=== PATIENT | male | born 1955 | race Hispanic/Latino ===

== ENCOUNTER 2016-07-24 14:23 | Inpatient (IN) | payer MEDICAID ==
[2016-07-24 14:23] VITALS: BMI 25.1
[2016-07-24 15:15] LABS: BASO # 0.1 K/uL (0.0-0.2); BASO % 1.1 % (0.0-2.0); EOS # 0.2 K/uL (0.0-0.7); EOS % 3.6 % (0.0-4.0); LYMPH # 2.3 K/uL (1.0-4.3); MEAN CELL VOLUME 96.6 fL (80.0-94.0); MEAN CORPUSCULAR HEMOGLOBIN 32.2 pg (27.0-31.0); MEAN CORPUSCULAR HGB CONC 33.4 g/dL (33.0-37.0); MEAN PLATELET VOLUME 9.1 fL (7.2-11.7); MONO # 0.4 K/uL (0.0-0.8); MONO % 6.4 % (0.0-10.0); WHITE BLOOD COUNT 6.7 K/uL (4.8-10.8)
[2016-07-24 15:21] LABS: CHLORIDE 103 mmol/L (98-107); SODIUM 149 mmol/L (132-148)
--- NOTE | 2016-07-24 15:21 | C.PDOC ---
History Of Present Illness 61 y/o male presents to the ED requesting heroin and alcohol detox. Pt last used heroin today and alcohol yesterday. Pt is prescreened for detox admission. Complains of poor hearing and forgetfulness. Denies headache, nausea, vomiting, fever, SOB or any other complaints. Time Seen by Provider: 07/24/16 15:03 Chief Complaint (Nursing): Substance Abuse History Per: Patient History/Exam Limitations: no limitations Suicide/Self Injury Attempted (Context): None Modifying Factor(s): Alcohol, Narcotics Severity: Mild Involuntary Hold By: None Recent travel outside of the [place]: No Past Medical History Reviewed: Historical Data, Nursing Documentation, Vital Signs Vital Signs: Last Vital Signs Temp 98.2 F 07/24/16 14:44 Pulse 80 07/24/16 14:44 Resp 16 07/24/16 14:44 BP 105/68 07/24/16 14:44 Pulse Ox 95 07/24/16 15:24 - Medical History PMH: Anxiety, Parkinson's Disease - [facility] Procedures INJECT/INFUSE ELECTROLYT (11/22/14) INJECT/INFUSE NEC (08/22/14) INSERT INDWELLING CATH (11/22/14) Family History: States: Unknown Family Hx - Social History Hx Alcohol Use: Yes Hx Substance Use: Yes - Immunization History Hx Tetanus Toxoid Vaccination: No Hx Influenza Vaccination: No Hx Pneumococcal Vaccination: No Review Of Systems Except As Marked, All Systems Reviewed And Found Negative. Constitutional: Negative for: Fever, Chills ENT: Positive for: Other (poor hearing) Cardiovascular: Negative for: Chest Pain Respiratory: Negative for: Shortness of Breath Gastrointestinal: Negative for: Nausea, Vomiting Neurological: Positive for: Other (forgetfullness) Physical Exam - Physical Exam Appears: Non-toxic, No Acute Distress, Other (cachectic, appears intoxicated with heroin) Skin: Warm, Dry, Pale, No Rash Head: Atraumatic, Normacephalic Neck: Normal, Normal ROM, Supple Chest: Symmetrical Cardiovascular: Rhythm Regular, No Murmur Respiratory: Normal Breath Sounds, No Rales, No Rhonchi, No Wheezing Gastrointestinal/Abdominal: Normal Exam, Soft, No Tenderness Extremity: Bilateral: Atraumatic Neurological/Psych: Oriented x3 ED Course And Treatment - Laboratory Results Result Diagrams: 07/24/16 15:06 07/24/16 15:06 O2 Sat by Pulse Oximetry: 95 (room air) Pulse Ox Interpretation: Normal Medical Decision Making Medical Decision Making: CRISIS made aware of case, will further evaluate. Ordered labs and UA. Disposition Counseled Patient/Family Regarding: Studies Performed, Diagnosis - Disposition Disposition: HOSPITALIZED Disposition Time: 16:44 Condition: GUARDED - Clinical Impression Clinical Impression: Drug abuse, Drug dependence - Scribe Statement The provider has reviewed the documentation as recorded by the Eileen Carter Provider Attestation: All medical record entries made by the Eileen were at my direction and personally dictated by me. I have reviewed the chart and agree that the record accurately reflects my personal performance of the history, physical exam, medical decision making, and the department course for this patient. I have also personally directed, reviewed, and agree with the discharge instructions and disposition. Decision To Admit - Pt Status Changed To: Hospital Disposition Of: Inpatient - Admit Certification Admit to Inpatient:: After my assessment, the patient will require hospitalization for at least two midnights. This is because of the severity of symptoms shown, intensity of services needed, and/or the medical risk in this patient being treated as an outpatient. - InPatient: Physician Admission Certification: I certify that this patient requires 2 or more midnights of care for the following reason:: needs inpatient detox - . Bed Request Type: Detox Patient Diagnosis: Drug abuse, Drug dependence
[2016-07-24 15:22] LABS: POTASSIUM 4.1 mmol/L (3.6-5.2); RBC URINE 10 /hpf (0-3); URINE BILIRUBIN NEGATIVE (NEGATIVE); URINE BLOOD 2+ (NEGATIVE); URINE COLOR Yellow (YELLOW); URINE GLUCOSE (UA) NORMAL (Normal); URINE KETONE TRACE mg/dL (NEGATIVE); URINE LEUKOCYTE ESTERASE NEG Leu/uL (Negative); URINE PROTEIN NEGATIVE (NEGATIVE); WBC URINE < 1 /hpf (0-5)
[2016-07-24 15:24] LABS: ALB/GLOB RATIO 1.4 (1.0-2.1); ALKALINE PHOSPHATASE 54 U/L (38-126); ALT/SGPT 12 U/L (21-72); AST/SGOT 27 U/L (17-59); BILIRUBIN,TOTAL 0.4 mg/dL (0.2-1.3); BLOOD UREA NITROGEN 17 mg/dL (9-20); CARBON DIOXIDE 29 mmol/L (22-30); GFR AFRICAN-AMERICAN > 60; GLUCOSE,RANDOM 94 mg/dL (75-110)
[2016-07-24 15:25] LABS: ALCOHOL SERUM < 10 mg/dl (0-10); CALCIUM 8.7 mg/dl (8.6-10.4)
[2016-07-24] MEDS ORDERED: Buprenorphine Hydrochloride 2 mg SL ONE ×2 (17:29→18:45)
[2016-07-24] MEDS ORDERED: Aluminum Hydroxide/Magnesium Hydroxide Susp (30 mL) PO PRN (19:41)
[2016-07-25] MEDS: Multiple Vitamins Tab PO SCH (10:00)
[2016-07-25] MEDS: Buprenorphine Hydrochloride 2 mg SL SCH (10:00)
--- NOTE | 2016-07-25 11:20 | PCM.PSYCH ---
Initial Psychiatric Evaluation - Initial Psychiatric Evaluation Legal Status: Capacity Chief Complaint (in patient's own words): "I want heroin detox" History of Present Illness and Precipitating Events: Pt is seen, chart reviewed, case discussed Patient is a 61 year old male. He has three children in their 30s and he keeps in touch with them. He lives with friends and is on long-term disability due to chronic back and leg pain. Pt relapsed a couple of weeks ago. He snorts one bundle of heroin a day and has been drinking alcohol. Pt has history of drinking a quart of tequila a day. Pt was in detox at [facility] in April and then went to [facility]. He said he really liked his treatment and was doing well but relapsed due to "peer pressure and his living situation." Pt has been using opioids for 10 years, which started with prescription painkillers for his back. Pt smokes one pack a day and denies any other recreational drug use. Pt is prescribed Xanax and Percocet by Dr. Zaman, which he takes. Patient was in rehab once last year and detox 3x. He never tried suboxone maintenance therapy. Pt denies any legal issues. PMH: COPD and Hypercholesteremia PsychHx: Anxiety FamPsychHx: Aunt and Brother are bipolar. Father and half brother are alcoholics Current Medications: Active Medications Generic Name Dose Route Start Last Admin Trade Name Freq PRN Reason Stop Dose Admin Al Hydrox/Mg Hydrox/Simethicone 30 ml 07/24/16 19:41 Maalox 30 Ml PO TID PRN Indigestion / Heartburn Buprenorphine HCl 8 mg 07/25/16 10:00 07/25/16 10:00 Subutex SL 07/29/16 09:59 8 mg DAILY ROYER Administration Taper Chlordiazepoxide 25 mg 07/24/16 18:00 07/25/16 05:51 Librium PO 07/28/16 17:59 25 mg Q6 ROYER Administration Taper Chlordiazepoxide 25 mg 07/24/16 17:28 Librium PO Q4H PRN Alcohol Withdrawal Clonidine HCl 0.1 mg 07/24/16 19:35 Catapres PO Q4H PRN Symptoms of alcohol withdrawl Folic Acid 1 mg 07/25/16 10:00 07/25/16 10:00 Folic Acid PO 1 mg DAILY ROYER Administration Gabapentin 300 mg 07/24/16 19:45 07/25/16 10:00 Neurontin PO 300 mg BID ROYER Administration Hydroxyzine HCl 50 mg 07/24/16 19:39 07/24/16 21:34 Atarax PO 50 mg Q6H PRN Administration Anxiety Ibuprofen 600 mg 07/24/16 19:39 Motrin Tab PO Q6H PRN Pain, moderate (4-7) Loperamide HCl 2 mg 07/24/16 19:41 Imodium PO Q8 PRN Diarrhea Multivitamins 1 tab 07/25/16 10:00 07/25/16 10:00 Hexavitamin PO 1 tab DAILY ROYER Administration Ondansetron HCl 4 mg 07/24/16 19:41 Zofran Tab PO Q8 PRN Nausea/Vomiting Thiamine HCl 100 mg 07/25/16 10:00 07/25/16 10:00 Vitamin B1 Tab PO 100 mg DAILY ROYER Administration Trazodone HCl 50 mg 07/24/16 19:35 07/24/16 21:34 Desyrel PO 50 mg HS PRN Administration Insomnia Past Psychiatric History - Past Psychiatric History Pertinent Medical Hx (Current Medical&Sleep Prob, Allergies): Allergies Allergy/AdvReac Type Severity Reaction Status Date / Time No Known Allergies Allergy Verified 05/13/16 13:52 Alprazolam [Xanax] 2 mg PO QID 05/13/16 Review of Systems - Constitutional Constitutional: Sweats - Psychiatric Psychiatric: Anxiety Mental Status Examination - Personal Presentation Personal Presentation: Looks stated age - Affect Affect: Constricted - Motor Activity Motor Activity: Calm - Reliability in Providing Information Reliability in Providing Information: Fair - Speech Speech: Organized - Mood Mood: Depressed - Formal Thought Process Formal Thought Process: No Impairment - Obsessions/Compulsions Obsessions: No Compulsions: No - Cognitive Functions Orientation: Person, Place, Situation, Time Sensorium: Drowsy Attention/Concentration: Attentive Abstract Thinking: [place] Estimate of Intelligence: Average Judgement: Imparied, as evidence by: Lack of insight into illness Memory: Remote intact, as evidenced by: Abilit to recall sig. life events - Risk Risk: Seizure, Withdrawal - Strength & Assets Inventory Strength & Assets Inventory: Cooperative DSM 5 DX - DSM 5 DSM 5 Diagnosis: Opioid Withdrawal Opioid Use Disorder-severe Alcohol Withdrawal Alcohol Use Disorder-severe Sedative, hypnotic withdrawal Sedative, hypnotic use disorder -severe - Recommended/Plan of Treatment Treatment Recommendations and Plan of Treatment: Opioid Withdrawal -Subutex taper -monitor vitals and wdw symptoms -medications as needed Opioid Use Disorder-severe -CBT and DE -attend groups and activities - individual/group therapy -support and psychoeducation Alcohol Withdrawal -Librium taper -Clonidine PRN -folic acid/thiamine/multivitamin -monitor vitals and wdw symptoms - medication as needed Alcohol Use Disorder-severe - CBT and DE -individual/group therapy -attend groups adn activities -support and psychoeducation Sedative, hypnotic withdrawal - Librium taper - monitor vitals adn wdw symptoms -meds as needed Sedative, hypnotic use disorder -severe -CBT and DE -individual/group therapy -support and psychoeducation 33 minutes - Smoking Cessation Smoking Cessation Initiated: Yes
[2016-07-25 15:55] VITALS: RESP 18
[2016-07-26] MEDS: Buprenorphine Hydrochloride 2 mg SL SCH (09:22)
[2016-07-26] MEDS: Multiple Vitamins Tab PO SCH (12:15)
--- NOTE | 2016-07-26 14:37 | PCM.PYCHPN ---
Psychiatric Progress Note - Psychiatric Progress Note Patient seen today, length of contact: 16 mins Patient Chief Complaint: "I want to leave on Saturday" Problems Identified/Issues Discussed: Pt seen, chart reviewed, case discussed Pt reports that he is not feeling well. He says that he is having diarrhea, cramps and body aches. 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 Pt was counseled on the risks of leaving early and the need to finish his detox. He is anxious about going back to his living situation and wants to work so he can get his own place. He is living with his [id number] and significant other who uses drugs, and that the house is chaotic. He plans on returning to [facility] for his aftercare. Suboxone maintenance therapy was discussed. Support and psychoeducation given. Medication Change: Yes (Subutex taper and Librium taper) Medical Record Reviewed: Yes Mental Status Examination - Cognitive Function Orientation: Person, Place, Situation, Time Memory: Intact Attention: Poor Concentration: Poor Association: Loose Fund of Knowledge: Poor - Mood Mood: Depressed, Anxious - Affect Affect: Constricted - Speech Speech: Stammering - Formal Thought Process Formal Thought Process: No Impairment - Suicidal Ideation Suicidal Ideation: No - Homicidal Ideation Homicidal Ideation: No Goal/Treatment Plan - Goal/Treatment Plan Need for Continued Stay: Remain at risks for inpatient hospitalization, Discharge may exacerbated symptoms Progress Toward Problem(s) and Goals/Treatment Plan: Opioid Withdrawal -Subutex taper -monitor vitals and wdw symptoms -medications as needed Opioid Use Disorder-severe -CBT and NC -attend groups and activities - individual/group therapy -support and psychoeducation Alcohol Withdrawal -Librium taper -Clonidine PRN -folic acid/thiamine/multivitamin -monitor vitals and wdw symptoms - medication as needed Alcohol Use Disorder-severe - CBT and NC -individual/group therapy -attend groups adn activities -support and psychoeducation Sedative, hypnotic withdrawal - Librium taper - monitor vitals adn wdw symptoms -meds as needed Sedative, hypnotic use disorder -severe -CBT and NC -individual/group therapy -support and psychoeducation Tobacco Use Disorder - start nicotine replacement therapy - Smoking Cessation Smoking Cessation Initiated: Yes
[2016-07-27 09:13] VITALS: BP 124/83; PULSE 69; TEMP 97.9; O2SAT 99
[2016-07-27] MEDS: Multiple Vitamins Tab PO SCH (09:30)
[2016-07-27] MEDS: Buprenorphine Hydrochloride 2 mg SL SCH (09:32)
--- NOTE | 2016-07-27 10:09 | PCM.PYCHDC ---
Mental Status Examination - Mental Status Examination Orientation: Person, Place, Situation, Time Memory: Intact Mood: Neutral Affect: Constricted Speech: Soft Attention: WNL Concentration: WNL Association: WNL Fund of Knowledge: WNL Formal Thought Process: No Impairment Description of patient's judgement and insight: good, fair Psychotic Thoughts and Behaviors: denies any AVH Suicidal Ideation: No Current Homicidal Ideation?: No Discharge Summary - Discharge Note Reason for Hospitalization: Patient is a 61 year old male. He has three children in their 30s and he keeps in touch with them. 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 Pt relapsed a couple of weeks ago. He snorts one bundle of heroin a day and has been drinking alcohol. Pt has history of drinking a quart of tequila a day. Pt was in detox at [facility] in April and then went to [facility]. He said he really liked his treatment and was doing well but relapsed due to "peer pressure and his living situation." Pt has been using opioids for 10 years, which started with prescription painkillers for his back. Pt smokes one pack a day and denies any other recreational drug use. Pt is prescribed Xanax and Percocet by Dr. Zaman, which he takes. Patient was in rehab once last year and detox 3x. He never tried suboxone maintenance therapy. Pt denies any legal issues. Consultations:: List each consultation separately and include: 1. Reason for request. 2. Findings. 3. Follow-up Summary of Hospital Course include:: 1. Description of specific treatment plan utilized for patients during their course of treatmen. 2. Summarize the time- course for resolution of acute symptoms and/or regressed behaviors. 3. Describe issues identified and worked on during hospitalization. 4. Describe medication utilized. 5. Describe medical problems identified and treated. 6. Reassessment of suicide risk Summary of Hospital Course: During the course of his stay, patient (pt) started progressively improving and he no longer remained anxious and irritable. He tolerated the withdrawal protocol very well. He didnt have any shakes, sweating or any other withdrawal symptoms. He started attending groups and meetings and started socializing. Denied any feelings of hopelessness, helplessness, and worthlessness, denied any problem with the sleep or appetite, denied suicidal ideation or homicidal ideation. Pt denied any auditory or visual hallucinations. Patient remained calm and cooperative and remained compliant with the medications. Patient tolerated the detox medications very well and denied any side effects. - Final Diagnosis (DSM 5) Condition upon Discharge: GOOD DSM 5: Opioid Withdrawal Opioid Use Disorder-severe Alcohol Withdrawal Alcohol Use Disorder-severe Sedative, hypnotic withdrawal Sedative, hypnotic use disorder -severe Disposition: HOME/ ROUTINE Follow-up Treatment Plan: Education: Pt was educated and counseled about the risks and benefits of taking and not taking medications. Pt was educated and counseled about the risks of drinking and abusing drugs. Pt was educated and counseled to go to the ER or call 911 if pt develop suicidal ideation or homicidal ideation, worsening of symptoms or severe side effects of the meds. Prescriptions/Medication Reconciliation: Buprenorphine Hydrochloride [Subutex] 2 mg SL ONCE #1 tab Gabapentin [Neurontin] 300 mg PO TID #90 cap Multivitamins [Hexavitamin] 1 tab PO DAILY #30 tab traZODone [Desyrel] 50 mg PO HS PRN #30 tab PRN Reason: Insomnia - Smoking Cessation Smoking Cessation Medication prescribed: No - Antipsychotic Medications Pt discharged on 2 or more routine antipsychotic medications: No
== END 2016-07-27 11:00 | disposition home or self-care (01) | DRG 744 ==
LOC: C.ER 14:23 → C.7D 16:45
PROVIDERS: ADMIT Psychiatry & Neurology Psychiatry; ATTEND Psychiatry & Neurology Psychiatry
PROC: HZ42ZZZ Group Counseling for Substance Abuse Treatment, Cognitive-Behavioral (ICD-10-PCS; principal; 2016-07-24)
PROC: HZ46ZZZ Group Counseling for Substance Abuse Treatment, Psychoeducation (ICD-10-PCS; 2016-07-24)
PROC: HZ2ZZZZ Detoxification Services for Substance Abuse Treatment (ICD-10-PCS; 2016-07-24)
DX: F11.23 Opioid dependence with withdrawal (principal); J44.9 Chronic obstructive pulmonary disease, unspecified; G20 Parkinson's disease; F10.239 Alcohol dependence with withdrawal, unspecified; F13.239 Sedative, hypnotic or anxiolytic dependence with withdrawal, unspecified; E78.00 Pure hypercholesterolemia, unspecified; F17.210 Nicotine dependence, cigarettes, uncomplicated; G89.29 Other chronic pain

== ENCOUNTER 2016-09-28 16:47 | Inpatient (IN) | payer MEDICAID ==
[2016-09-28 16:47] VITALS: BMI 25.1
--- NOTE | 2016-09-28 17:15 | C.PDOC ---
History Of Present Illness 61 y/o male presents to the ED with complaints of hearing voices telling him to kill himself. Pt denies HI or any physical complaints. Time Seen by Provider: 09/28/16 17:06 Chief Complaint (Nursing): Psychiatric Evaluation History Per: Patient History/Exam Limitations: no limitations Current Symptoms Are (Timing): Still Present Modifying Factor(s): None Severity: Mild Associated Symptoms: Suicidal Thoughts. denies: Suicidal Plan Involuntary Hold By: None Recent travel outside of the [place]: No Past Medical History Reviewed: Historical Data, Nursing Documentation, Vital Signs Vital Signs: Last Vital Signs Temp 97.9 F 09/28/16 16:57 Pulse 74 09/28/16 16:57 Resp 18 09/28/16 16:57 BP 105/73 09/28/16 16:57 Pulse Ox 98 09/28/16 18:16 - Medical History PMH: Anxiety, Parkinson's Disease, Seizures - [facility] Procedures DETOXIFICATION SERVICES FOR SUBSTANCE ABUSE TREATMENT (07/24/16) GROUP INDUSTRIAL TECHNICIAN FOR SUBSTANCE ABUSE TREATMENT, PSYCHOEDUCATION (07/24/16) GROUP INDUSTRIAL TECHNICIAN FOR SUBSTANCE ABUSE, COGNITIVE BEHAVIORAL (07/24/16) INJECT/INFUSE ELECTROLYT (11/22/14) INJECT/INFUSE NEC (08/22/14) INSERT INDWELLING CATH (11/22/14) Family History: States: Unknown Family Hx - Social History Hx Alcohol Use: Yes Hx Substance Use: Yes - Immunization History Hx Tetanus Toxoid Vaccination: No Hx Influenza Vaccination: No Hx Pneumococcal Vaccination: No Review Of Systems Except As Marked, All Systems Reviewed And Found Negative. Psych: Positive for: Suicidal ideation Physical Exam - Physical Exam Appears: Non-toxic, No Acute Distress Skin: Warm, Dry, No Rash Head: Atraumatic, Normacephalic Neck: Normal, Normal ROM, Supple Chest: Symmetrical Cardiovascular: Rhythm Regular, No Murmur Respiratory: Normal Breath Sounds, No Rales, No Rhonchi, No Wheezing Gastrointestinal/Abdominal: Normal Exam, Soft, No Tenderness Extremity: Bilateral: Atraumatic Neurological/Psych: Oriented x3, Normal Speech, Normal Cognition ED Course And Treatment - Laboratory Results Result Diagrams: 09/28/16 17:43 09/28/16 17:43 O2 Sat by Pulse Oximetry: 98 (room air) Pulse Ox Interpretation: Normal Medical Decision Making Medical Decision Making: will clear for crisis 630: pt medically cleared 700: accepted to crisis. Disposition - Disposition Disposition: HOSPITALIZED Disposition Time: 18:57 Condition: STABLE - Clinical Impression Clinical Impression: Hallucinations, Opiate abuse, continuous - Scribe Statement The provider has reviewed the documentation as recorded by the Eileen Carter Provider Attestation: All medical record entries made by the Layaibe were at my direction and personally dictated by me. I have reviewed the chart and agree that the record accurately reflects my personal performance of the history, physical exam, medical decision making, and the department course for this patient. I have also personally directed, reviewed, and agree with the discharge instructions and disposition. Decision To Admit - Pt Status Changed To: Hospital Disposition Of: Inpatient - Admit Certification Admit to Inpatient:: After my assessment, the patient will require hospitalization for at least two midnights. This is because of the severity of symptoms shown, intensity of services needed, and/or the medical risk in this patient being treated as an outpatient. - InPatient: Physician Admission Certification: I certify that this patient requires 2 or more midnights of care for the following reason:: pt will need inpt pysch - . Bed Request Type: Psychiatry Admitting Physician: Claudia Guzman Patient Diagnosis: Hallucinations, Opiate abuse, continuous
[2016-09-28 17:57] LABS: BASO # 0.1 K/uL (0.0-0.2); BASO % 1.1 % (0.0-2.0); EOS # 0.2 K/uL (0.0-0.7); EOS % 3.2 % (0.0-4.0); HEMOGLOBIN 12.8 g/dL (12.0-18.0); LYMPH # 1.9 K/uL (1.0-4.3); LYMPH % 35.7 % (20.0-40.0); MEAN CORPUSCULAR HEMOGLOBIN 31.8 pg (27.0-31.0); MEAN CORPUSCULAR HGB CONC 34.2 g/dL (33.0-37.0); MEAN PLATELET VOLUME 8.4 fL (7.2-11.7); MONO # 0.4 K/uL (0.0-0.8); MONO % 7.1 % (0.0-10.0); NEUT # 2.7 K/uL (1.8-7.0); NEUT % 52.9 % (50.0-75.0); RBC 4.03 Mil/uL (4.40-5.90); RED CELL DISTRIBUTION WIDTH 13.3 % (11.5-14.5); WHITE BLOOD COUNT 5.2 K/uL (4.8-10.8)
[2016-09-28 18:00] LABS: ALBUMIN 3.8 g/dL (3.5-5.0)
[2016-09-28 18:03] LABS: ALB/GLOB RATIO 1.2 (1.0-2.1); AST/SGOT 22 U/L (17-59); BLOOD UREA NITROGEN 16 mg/dL (9-20); GFR AFRICAN-AMERICAN > 60; GFR NON-AFRICAN AMERICAN > 60
[2016-09-28 18:04] LABS: ALT/SGPT 21 U/L (21-72)
[2016-09-28 18:05] LABS: SALICYLATE < 1.0 mg/dL 1
[2016-09-28 18:08] LABS: ACETAMINOPHEN < 10.0 ug/mL (10.0-30.0)
[2016-09-28 18:10] LABS: BARBITURATES, UR POSITIVE (NEGATIVE); BENZODIAZEPINES, UR POSITIVE (NEGATIVE)
[2016-09-28 18:13] LABS: OPIATES, UR POSITIVE (NEGATIVE); PHENCYCLIDINE, UR NEGATIVE (NEGATIVE); SQUAMOUS EPITHIAL < 1 /hpf (0-5); URINE BILIRUBIN NEGATIVE (NEGATIVE); URINE BLOOD 2+ (NEGATIVE); URINE CLARITY Clear (Clear); URINE COLOR Yellow (YELLOW); URINE GLUCOSE (UA) NORMAL (Normal); URINE LEUKOCYTE ESTERASE NEG Leu/uL (Negative); URINE NITRATE NEGATIVE (NEGATIVE); URINE PROTEIN NEGATIVE (NEGATIVE); URINE UROBILINOGEN NORMAL mg/dL (0.2-1.0)
[2016-09-28 19:56] VITALS: O2SAT 95
--- NOTE | 2016-09-29 09:35 | PCM.PSYCH ---
Initial Psychiatric Evaluation - Initial Psychiatric Evaluation Type of Admission: Voluntary Legal Status: Capacity Chief Complaint (in patient's own words): "I'm in a bad shape" History of Present Illness and Precipitating Events: Pt is seen, chart reviewed, case discussed He is known to the news writer from detox admissions. Patient is a 61 year old male. He has three children in their 30s and he keeps in touch with them. He used to live with friends but he is now homeless b/c of his drug and alcohol use. He is on intermediate disability due to chronic back and leg pain. he is here b/c he felt more depressed and suicidal, and has been hearing a voice on and off. No commands. Pt relapsed a couple of days after his last detox at . He snorts or shoots one bundle of heroin a day and has been drinking alcohol about a 5th vodka or more. Pt has history of drinking a quart of tequila a day. Pt was in detox at [facility] [place] twice this year and then went to [facility]. Pt has been using opioids for 10 years, which started with prescription painkillers for his back. Pt smokes one pack a day and denies any other recreational drug use. Pt is prescribed Xanax and Percocet by Dr. Zaman, which he takes. he also admits to overusing his Xanax up to 4x/day sometimes. Patient was in rehab once last year and detox 3x. He never tried suboxone maintenance therapy. Pt denies any legal issues. PMH: COPD and Hypercholesteremia PsychHx: Anxiety, depression FamPsychHx: Aunt and Brother are bipolar. Father and half brother are alcoholics Current Medications: Active Medications Generic Name Dose Route Start Last Admin Trade Name Freq PRN Reason Stop Dose Admin Chlordiazepoxide 25 mg 09/29/16 00:00 09/29/16 06:23 Librium PO 10/02/16 23:59 25 mg Q6 ROYER Administration Taper Chlordiazepoxide 25 mg 09/28/16 22:04 09/28/16 22:38 Librium PO 25 mg Q4H PRN Administration Alcohol Withdrawal Clonidine HCl 0.1 mg 09/28/16 22:04 09/29/16 08:59 Catapres PO 0.1 mg Q4H PRN Administration Symptoms of alcohol withdrawl Escitalopram Oxalate 10 mg 09/29/16 10:00 09/29/16 08:59 Lexapro PO 10 mg DAILY ROYER Administration Gabapentin 300 mg 09/28/16 22:15 09/29/16 08:59 Neurontin PO 300 mg BID ROYER Administration Hydroxyzine HCl 50 mg 09/28/16 22:05 Atarax PO Q6H PRN Anxiety Ibuprofen 600 mg 09/28/16 22:05 09/29/16 08:59 Motrin Tab PO 600 mg Q6H PRN Administration Pain, moderate (4-7) Trazodone HCl 100 mg 09/28/16 22:05 09/28/16 22:38 Desyrel PO 100 mg HS PRN Administration Insomnia Past Psychiatric History - Past Psychiatric History Previous Treatment History: None Pertinent Medical Hx (Current Medical&Sleep Prob, Allergies): Allergies Allergy/AdvReac Type Severity Reaction Status Date / Time No Known Allergies Allergy Verified 05/13/16 13:52 Buprenorphine Hydrochloride [Subutex] 2 mg SL ONCE #1 tab 07/26/16 Acetaminophen/Oxycodone Hydr [Percocet 10/325 mg Tab] 1 tab PO TID 09/28/16 Alprazolam [Xanax] 2 mg PO QID 09/28/16 Review of Systems - Psychiatric Psychiatric: Abnormal Sleep Pattern, Anhedonia, Anxiety, Behavioral Changes, Change in Appetite, Depression, Difficulty Concentrating, Hallucinations, Irritability, Paranoia. absent: Homicidal Ideation, Suicidal Ideation Mental Status Examination - Personal Presentation Personal Presentation: Looks older than stated age (odd, lethargic, pale) - Affect Affect: Blunted - Motor Activity Motor Activity: Calm - Reliability in Providing Information Reliability in Providing Information: Good - Speech Speech: Organized (slowed) - Mood Mood: Depressed, Anxious - Formal Thought Process Formal Thought Process: Hallucinations - Cognitive Functions Orientation: Person, Place, Situation, Time Sensorium: Drowsy Attention/Concentration: Easily distracted Estimate of Intelligence: Average Judgement: Intact, as evidence by: Insight regarding need for hospitalization Memory: Recent intact, as evidence by: Ability to recall events of the day, Remote intact, as evidenced by: Abilit to recall sig. life events - Risk Risk: Seizure, Withdrawal, Diminished functioning - Strength & Assets Inventory Strength & Assets Inventory: Life experience, Cooperative - Limitations Limitations: Living alone, Other DSM 5 DX - DSM 5 DSM 5 Diagnosis: Depressive d/o - unspecified r/o MDD single, severe with psychotic features Opioid Withdrawal Opioid Use Disorder-severe Alcohol Withdrawal Alcohol Use Disorder-severe Sedative, hypnotic withdrawal Sedative, hypnotic use disorder -severe personality d/o - unspecified Tobacco use d/o - severe - Recommended/Plan of Treatment Treatment Recommendations and Plan of Treatment: Opioid Withdrawal -Subutex taper -monitor vitals and wdw symptoms -medications as needed Opioid Use Disorder-severe -CBT and TX -attend groups and activities - individual/group therapy -support and psychoeducation Alcohol Withdrawal -Librium taper -Clonidine PRN -folic acid/thiamine/multivitamin -monitor vitals and wdw symptoms - medication as needed Alcohol Use Disorder-severe - CBT and TX -individual/group therapy -attend groups adn activities -support and psychoeducation Sedative, hypnotic withdrawal - Librium taper - monitor vitals adn wdw symptoms -meds as needed Sedative, hypnotic use disorder -severe -CBT and TX -individual/group therapy -support and psychoeducation 33 minutes Projected ELOS: 7 days Prognosis: good Discharge Plan and Discharge Criteria: No wdw sxs No SI or AH refer to rehab this time and MAT - Smoking Cessation Smoking Cessation Initiated: Yes
--- NOTE | 2016-09-30 17:29 | PCM.PYCHPN ---
Psychiatric Progress Note - Psychiatric Progress Note Patient seen today, length of contact: 15 minutes Patient Chief Complaint: I'm hearing voices. The voices are of the Demons. Demons call my name. Problems Identified/Issues Discussed: Patient seen. Chart reviewed. Case discussed with the staff. Issues related to illness and treatment were discussed with the patient. Reported compliant with treatment with no adverse affects. No withdrawal symptoms. Patient reported he hears voices of demons. Reported demons call his name. Also believed that demons or after him. Will adjust the dose of Seroquel from 50 mg twice a day to 150 mg at night. We will continue methadone taper. At the time of evaluation, patient was awake alert oriented 3, had no suicidal ideations or homicidal ideations. Patient still has delusions and auditory hallucinations, believing that demons are here and calling his name. Medical Problems: Hypercholesterolemia COPD Diagnostic Results: Reviewed DSM 5 Symptoms Update: Some improvement with treatment, patient needs more time for stabilization. Medication Change: Yes (Dose of Seroquel increased to 150 mg at night) Medical Record Reviewed: Yes Mental Status Examination - Cognitive Function Orientation: Person, Place, Situation, Time Memory: Intact Attention: WNL Concentration: WNL Association: [facility] Fund of Knowledge: [facility] Decription of patient's judgement and insights: Fair - Mood Mood: Depressed - Affect Affect: Depressed - Speech Speech: Appropriate - Formal Thought Process Formal Thought Process: Hallucinations, Delusions - Suicidal Ideation Suicidal Ideation: No - Homicidal Ideation Homicidal Ideation: No Goal/Treatment Plan - Goal/Treatment Plan Need for Continued Stay: Remain at risks for inpatient hospitalization, Discharge may exacerbated symptoms, Severe functional impairment Progress Toward Problem(s) and Goals/Treatment Plan: Patient education Supportive therapy Dose of Seroquel increased to 150 mg at bedtime Continue rest of the treatment as before Estimated Date of D/C: 10/05/16 - Smoking Cessation Smoking Cessation Initiated: No
--- NOTE | 2016-10-01 14:47 | PCM.PYCHPN ---
Psychiatric Progress Note - Psychiatric Progress Note Patient seen today, length of contact: 16 minutes Patient Chief Complaint: "I feel awful. I have stomach pains and I am still hearing voices." Problems Identified/Issues Discussed: The pt is seen, chart reviewed, case discussed with staff. Support given, CBT and CO used briefly No new symptoms reported, improving slowly and needs more time No SEs from medications, risks discussed. After care discussed. Patient wants to go back to [facility] as outpatient if he can't get into rehab Medical hx: Vibration white finger from many years of using hand-held power tools; leading to nerve damage Social hx: lives with [id number] but he says it was very difficult and now he is trying to move out. His uses and his [id number] drinks and fights. He says he might get a place to stay with a friend in [place]. Medication Change: Yes (Dose of Seroquel increased to 150 mg at night) Medical Record Reviewed: Yes Mental Status Examination - Cognitive Function Orientation: Person, Place, Situation, Time Memory: Intact Attention: WNL Concentration: WNL Association: WNL Fund of Knowledge: WNL - Mood Mood: Depressed - Affect Affect: Constricted, Depressed - Speech Speech: Appropriate - Formal Thought Process Formal Thought Process: Hallucinations, Delusions - Suicidal Ideation Suicidal Ideation: No - Homicidal Ideation Homicidal Ideation: No Goal/Treatment Plan - Goal/Treatment Plan Need for Continued Stay: Remain at risks for inpatient hospitalization, Discharge may exacerbated symptoms, Severe functional impairment Progress Toward Problem(s) and Goals/Treatment Plan: Opioid Withdrawal -Subutex taper -monitor vitals and wdw symptoms -medications as needed Opioid Use Disorder-severe -CBT and CO -attend groups and activities - individual/group therapy -support and psychoeducation -inpatient rehab -can't go to because he has Vibration White Finger in both his hands so he cannot work. Wants to go back to [facility] as an outpatient. Alcohol Withdrawal -Librium taper -Clonidine PRN -folic acid/thiamine/multivitamin -monitor vitals and wdw symptoms - medication as needed Alcohol Use Disorder-severe - CBT and CO -individual/group therapy -attend groups adn activities -support and psychoeducation Sedative, hypnotic withdrawal - Librium taper - monitor vitals adn wdw symptoms -meds as needed Sedative, hypnotic use disorder -severe -CBT and CO -individual/group therapy -support and psychoeducation Estimated Date of D/C: 10/05/16
--- NOTE | 2016-10-02 15:54 | PCM.PYCHPN ---
Psychiatric Progress Note - Psychiatric Progress Note Patient seen today, length of contact: 17 minutes Patient Chief Complaint: "I still don't feel well." Problems Identified/Issues Discussed: The pt is seen, chart reviewed, case discussed with staff. Support given, CBT and PR used briefly Some new symptoms reported, as he is still wdw'ing. Extra dose of methadone given He is improving slowly and needs more time No SEs from medications, risks discussed. After care discussed. Patient wants to go back to [facility] as outpatient if he can't get into rehab. Medical hx: Vibration white finger from many years of using hand-held power tools; leading to nerve damage Social hx: lives with [id number] but he says it was very difficult and now he is trying to move out. His uses and his clzkma-qf-[id number] drinks and fights. He says he might get a place to stay with a friend in [place]. Medication Change: Yes (Dose of Seroquel increased to 150 mg at night) Medical Record Reviewed: Yes Mental Status Examination - Cognitive Function Orientation: Person, Place, Situation, Time Memory: Intact Attention: WNL Concentration: WNL Association: WNL Fund of Knowledge: WNL - Mood Mood: Depressed - Affect Affect: Constricted, Depressed - Speech Speech: Appropriate - Formal Thought Process Formal Thought Process: Hallucinations, Delusions - Suicidal Ideation Suicidal Ideation: No - Homicidal Ideation Homicidal Ideation: No Goal/Treatment Plan - Goal/Treatment Plan Need for Continued Stay: Remain at risks for inpatient hospitalization, Discharge may exacerbated symptoms, Severe functional impairment Progress Toward Problem(s) and Goals/Treatment Plan: Opioid Withdrawal -Subutex taper -monitor vitals and wdw symptoms -medications as needed Opioid Use Disorder-severe -CBT and PR -attend groups and activities - individual/group therapy -support and psychoeducation -inpatient rehab -can't go to because he has Vibration White Finger in both his hands so he cannot work. Wants to go back to [facility] as an outpatient. Alcohol Withdrawal -Librium taper -Clonidine PRN -folic acid/thiamine/multivitamin -monitor vitals and wdw symptoms - medication as needed Alcohol Use Disorder-severe - CBT and PR -individual/group therapy -attend groups adn activities -support and psychoeducation Sedative, hypnotic withdrawal - Librium taper - monitor vitals adn wdw symptoms -meds as needed Sedative, hypnotic use disorder -severe -CBT and PR -individual/group therapy -support and psychoeducation Estimated Date of D/C: 10/05/16
[2016-10-03 07:44] VITALS: BP 128/72; PULSE 84; RESP 19; TEMP 97.7
--- NOTE | 2016-10-03 09:38 | PCM.PYCHDC ---
Mental Status Examination - Mental Status Examination Orientation: Person, Place, Situation, Time Memory: Intact Mood: Anxious Affect: Constricted Speech: Appropriate Attention: WNL Concentration: WNL Association: WNL Fund of Knowledge: WNL Formal Thought Process: No Impairment Suicidal Ideation: No Current Homicidal Ideation?: No Discharge Summary - Discharge Note Reason for Hospitalization: Patient is admitted for depression, suicidal ideation, opioid use, alcohol use, and hearing voices on and off (no commands). Consultations:: List each consultation separately and include: 1. Reason for request. 2. Findings. 3. Follow-up Summary of Hospital Course include:: 1. Description of specific treatment plan utilized for patients during their course of treatmen. 2. Summarize the time- course for resolution of acute symptoms and/or regressed behaviors. 3. Describe issues identified and worked on during hospitalization. 4. Describe medication utilized. 5. Describe medical problems identified and treated. 6. Reassessment of suicide risk Summary of Hospital Course: Upon admission: Pt is seen, chart reviewed, case discussed He is known to the real estate underwriter from detox admissions. Patient is a 61 year old male. He has three children in their 30s and he keeps in touch with them. He used to live with friends but he is now homeless b/c of his drug and alcohol use. He is on detention disability due to chronic back and leg pain. he is here b/c he felt more depressed and suicidal, and has been hearing a voice on and off. No commands. Pt relapsed a couple of days after his last detox at . He snorts or shoots one bundle of heroin a day and has been drinking alcohol about a 5th vodka or more. Pt has history of drinking a quart of tequila a day. Pt was in detox at [facility] twice this year and then went to [facility]. Pt has been using opioids for 10 years, which started with prescription painkillers for his back. Pt smokes one pack a day and denies any other recreational drug use. Pt is prescribed Xanax and Percocet by Dr. Zaman, which he takes. he also admits to overusing his Xanax up to 4x/day sometimes. Patient was in rehab once last year and detox 3x. He never tried suboxone maintenance therapy. Pt denies any legal issues. PMH: COPD and Hypercholesteremia PsychHx: Anxiety, depression FamPsychHx: Aunt and Brother are bipolar. Father and half brother are alcoholics Upon discharge: The pt was admitted and started on treatment with psychotherapy, support, psychoeducation and medications. CA and CBT used. The pt attended groups and activities, as well as milieu therapy. All the risks and benefits of medications are discussed and the patient understood and agreed. The pt improved with the treatments provided. After care discussed with the patient. Patient will go to [facility] in [place] and will stay with a good friend. Patient admits his reason for wanting immediate discharge is to prepare for a court case against him on Sunday 10/08 for possession of 6 bags of heroin. He says that he went to court for the same charge in January and that now this case is in high court. - Final Diagnosis (DSM 5) Condition upon Discharge: STABLE DSM 5: Depressive d/o - unspecified r/o MDD single, severe with psychotic features Opioid Withdrawal Opioid Use Disorder-severe Alcohol Withdrawal Alcohol Use Disorder-severe Sedative, hypnotic withdrawal Sedative, hypnotic use disorder -severe personality d/o - unspecified Tobacco use d/o - severe Disposition: HOME/ ROUTINE Follow-up Treatment Plan: Continue below medications after discharge. Follow after care plan as discussed. Go to [facility] in [place]. Use relapse prevention skills Return to ER or call 911 if suicidal, homicidal or symptoms relapse. Stay away from stress, alcohol and drugs. See primary doctor once a year. Prescriptions/Medication Reconciliation: Escitalopram [Lexapro] 10 mg PO DAILY #30 tab Gabapentin [Neurontin] 300 mg PO BID #60 cap QUEtiapine [SEROquel] 200 mg PO HS #30 tab traZODone [Desyrel] 100 mg PO HS PRN #30 tab PRN Reason: Insomnia - Smoking Cessation Smoking Cessation Medication prescribed: No - Antipsychotic Medications Pt discharged on 2 or more routine antipsychotic medications: No
== END 2016-10-03 10:30 | disposition home or self-care (01) | DRG 744 ==
LOC: C.ER 16:47 → C.5E 18:56
PROVIDERS: ADMIT Psychiatry & Neurology Psychiatry; ATTEND Psychiatry & Neurology Psychiatry
PROC: HZ2ZZZZ Detoxification Services for Substance Abuse Treatment (ICD-10-PCS; principal; 2016-09-28)
DX: F10.239 Alcohol dependence with withdrawal, unspecified (principal); J44.9 Chronic obstructive pulmonary disease, unspecified; F11.23 Opioid dependence with withdrawal; R45.851 Suicidal ideations; G20 Parkinson's disease; F22 Delusional disorders; F17.210 Nicotine dependence, cigarettes, uncomplicated; G89.29 Other chronic pain; Z59.0 Homelessness; F32.9 Major depressive disorder, single episode, unspecified; Z68.22 Body mass index [BMI] 22.0-22.9, adult; F19.10 Other psychoactive substance abuse, uncomplicated; F13.10 Sedative, hypnotic or anxiolytic abuse, uncomplicated

== ENCOUNTER 2016-12-01 16:37 | Inpatient (IN) | payer MEDICAID, OTHER ==
[2016-12-01 16:38] VITALS: BMI 22.0
[2016-12-01 17:43] LABS: BASO # 0.1 K/uL (0.0-0.2); BASO % 0.9 % (0.0-2.0); EOS # 0.3 K/uL (0.0-0.7); EOS % 3.2 % (0.0-4.0); HEMATOCRIT 36.1 % (35.0-51.0); LYMPH % 22.2 % (20.0-40.0); MEAN CELL VOLUME 93.9 fL (80.0-94.0); MEAN CORPUSCULAR HEMOGLOBIN 32.3 pg (27.0-31.0); MEAN CORPUSCULAR HGB CONC 34.4 g/dL (33.0-37.0); MEAN PLATELET VOLUME 8.4 fL (7.2-11.7); MONO # 0.7 K/uL (0.0-0.8); MONO % 8.2 % (0.0-10.0); RED CELL DISTRIBUTION WIDTH 13.3 % (11.5-14.5); WHITE BLOOD COUNT 8.9 K/uL (4.8-10.8)
[2016-12-01 17:54] LABS: ALB/GLOB RATIO 1.4 (1.0-2.1); ALCOHOL SERUM < 10 mg/dl (0-10); ALKALINE PHOSPHATASE 68 U/L (38-126); ALT/SGPT 25 U/L (21-72); AST/SGOT 22 U/L (17-59); BILIRUBIN,TOTAL 0.3 mg/dL (0.2-1.3); BLOOD UREA NITROGEN 20 mg/dL (9-20); CALCIUM 9.1 mg/dl (8.6-10.4); CARBON DIOXIDE 29 mmol/L (22-30); CHLORIDE 103 mmol/L (98-107); GFR AFRICAN-AMERICAN > 60; GLUCOSE,RANDOM 97 mg/dL (75-110); POTASSIUM 4.1 mmol/L (3.6-5.2); SODIUM 143 mmol/L (132-148); TOTAL PROTEIN 7.1 g/dL (6.3-8.3)
--- NOTE | 2016-12-01 17:56 | C.PDOC ---
History Of Present Illness <Shahida Lorenzo - Last Filed: 12/01/16 19:04> <Mike Reinoso - Last Filed: 12/01/16 19:27> 61 yr old male presents to the ER stating he has auditory hallucinations which tell him to kill his and himself. However, patient denies attempt or plans. Patient admits to taking Xanax and heroin for his symptoms, but state she was taken off them by his doctor. Patient denies chest pain, SOB, nausea, vomiting, weakness or numbness. (Shahida Lorenzo) History Per: Patient History/Exam Limitations: no limitations Onset/Duration Of Symptoms: Days <Shahida Lorenzo - Last Filed: 12/01/16 19:04> <Mike Reinoso - Last Filed: 12/01/16 19:27> Time Seen by Provider: 12/01/16 16:50 Chief Complaint (Nursing): Psychiatric Evaluation Past Medical History Reviewed: Historical Data, Nursing Documentation, Vital Signs - Medical History PMH: Anxiety, Bipolar Disorder, COPD, Parkinson's Disease, Seizures Family History: States: No Known Family Hx - Social History Hx Alcohol Use: Yes Hx Substance Use: Yes - Immunization History Hx Tetanus Toxoid Vaccination: No Hx Influenza Vaccination: No Hx Pneumococcal Vaccination: No <Shahida Lorenzo - Last Filed: 12/01/16 19:04> Review Of Systems Except As Marked, All Systems Reviewed And Found Negative. Cardiovascular: Negative for: Chest Pain Respiratory: Negative for: Shortness of Breath Gastrointestinal: Negative for: Nausea, Vomiting Neurological: Negative for: Weakness, Numbness Psych: Positive for: Other (Hallucinations, SI and HI but no attempt or plan.) <Shahida Lorenzo - Last Filed: 12/01/16 19:04> Physical Exam - Physical Exam Appears: Well, No Acute Distress Skin: Normal Color, Warm, Dry, No Rash Head: Atraumatic, Normacephalic Oral Mucosa: Moist Neck: Normal, Normal ROM, No Supple Chest: Symmetrical, No Tenderness Cardiovascular: Rhythm Regular, No Murmur Respiratory: Normal Breath Sounds, No Rales, No Rhonchi, No Wheezing Extremity: Normal ROM, No Swelling Neurological/Psych: Oriented x3, Normal Speech, Normal Motor <Shahida Lorenzo - Last Filed: 12/01/16 19:04> ED Course And Treatment - Laboratory Results Result Diagrams: 12/01/16 17:36 12/01/16 17:36 O2 Sat by Pulse Oximetry: 98 (RA) Pulse Ox Interpretation: Normal <Shahida Lorenzo - Last Filed: 12/01/16 19:04> - Laboratory Results Result Diagrams: 12/01/16 17:36 12/01/16 17:36 <JayceeadánMike - Last Filed: 12/01/16 19:27> Medical Decision Making <Shahida Lorenzo - Last Filed: 12/01/16 19:04> <JayceeadánRadhagiulia - Last Filed: 12/01/16 19:27> Medical Decision Making: PLAN: * Alcohol Serum * Drug Screen * CBC * Urinalysis The patient has been evaluated by the crisis team and they state the patient is to be placed on 1:1. Patient was placed on 1:1. (Shahida Lorenzo) Disposition - Disposition Disposition Time: 18:39 <Shahida Lorenzo - Last Filed: 12/01/16 19:04> Discussed With DrJack: Claudia Guzman Comment: accepted the pt on his service and took over the care at 7:26 PM Doctor Will See Patient In The: Hospital Counseled Patient/Family Regarding: Studies Performed, Diagnosis - POA Present On Arrival: None <JayceeadánMike - Last Filed: 12/01/16 19:27> - Disposition Disposition: HOSPITALIZED Condition: FAIR Forms: [facility] (Hebrew) - Clinical Impression Clinical Impression: Opiate abuse, continuous, Schizophrenia - PA / [employer]QU[employer] SUPERVISOR / Resident Statement MD/DO has reviewed & agrees with the documentation as recorded. - Scribe Statement The provider has reviewed the documentation as recorded by the Scribe <Shahida Lorenzo - Last Filed: 12/01/16 19:04> <Mike Reinoso - Last Filed: 12/01/16 19:27> - Scribe Statement Stefanie Naidu All medical record entries made by the Scribe were at my direction and personally dictated by me. I have reviewed the chart and agree that the record accurately reflects my personal performance of the history, physical exam, medical decision making, and the department course for this patient. I have also personally directed, reviewed, and agree with the discharge instructions and disposition. (Shahida Lorenzo) Physician Patient Turnover Patient Signed Over To: Mike Reinoso Handoff Comments: Pending lab work and psych disposition <Shahida Lorenzo - Last Filed: 12/01/16 19:04> Decision To Admit <Shahida Lorenzo - Last Filed: 12/01/16 19:04> - Pt Status Changed To: Hospital Disposition Of: Inpatient - Admit Certification Admit to Inpatient:: After my assessment, the patient will require hospitalization for at least two midnights. This is because of the severity of symptoms shown, intensity of services needed, and/or the medical risk in this patient being treated as an outpatient. - InPatient: Physician Admission Certification: I certify that this patient requires 2 or more midnights of care for the following reason:: After my assessment, the patient will require hospitalization for at least two midnights. This is because of the severity of symptoms shown, intensity of services needed, and/or the medical risk in this patient being treated as an outpatient. - . Bed Request Type: Psychiatry Admitting Physician: Claudia Guzman <Mike Reinoso - Last Filed: 12/01/16 19:27> - . Patient Diagnosis: Opiate abuse, continuous, Schizophrenia
[2016-12-01 18:49] LABS: RBC URINE 11 /hpf (0-3); URINE BACTERIA RARE (<OCC); URINE BILIRUBIN NEGATIVE (NEGATIVE); URINE BLOOD 2+ (NEGATIVE); URINE COLOR Yellow (YELLOW); URINE GLUCOSE (UA) NORMAL (Normal); URINE KETONE NEGATIVE (NEGATIVE); URINE LEUKOCYTE ESTERASE NEG Leu/uL (Negative); URINE PROTEIN NEGATIVE (NEGATIVE); URINE UROBILINOGEN NORMAL mg/dL (0.2-1.0); WBC URINE < 1 /hpf (0-5)
[2016-12-01 20:33] VITALS: O2SAT 98
--- NOTE | 2016-12-01 20:49 | PCM.BM ---
<Itzel Meyer - Last Filed: 12/01/16 20:45> Treatment Plan Problems - Problems identified on initial assessmt Depression Date Initiated: 12/01/16 Time Initiated: 20:46 Assessment reference: NA Status: Active Suicidal Ideation Date Initiated: 12/01/16 Time Initiated: 20:46 Assessment reference: NA Status: Active Treatment assets and liabiliti Patient Assests: cooperative, ADL independent, negotiates basic needs, cognitively intact Patient Liabilities: live alone (Homeless/), poor support system, substance abuse (Opiates, Xanax), medical problems (Seizure, Back pain Parkinson's disease ) - Milieu Protocol Maintain good personal hygiene: daily Encourage regular showers, daily Remind patient to perform daily oral care, other Assist patient to perform ADL's (Self) Conduct patient checks and document Observation sheet: Q15 minutes (Safety) Maintain personal safety: every shift Educate patient to report safety concerns to staff, every shift Monitor environment for contraband/sharps Medication safety: Monitor for expected outcome, potential side effects: every shift, Assess barriers to learning: every shift, Assess readiness for medication education: every shift <Ceci Medel - Last Filed: 12/03/16 10:42> Family Contact Family involvement: Famliy/SO not involved - Goals for Treatment Patient goals for treatment: "I want to go to a program in [place]." Discharge/Continuing Care - Education Needs Education Needs: Patient Medication, Patient Coping Skills, Patient Community resources - Discharge Discharge Criteria: Tolerates medication w/o severe side effects, Free of Suicidal thoughts, Free of Homicidal thoughts, No longer exhibiting s/s of withdrawal Discharge to:: Substance Abuse Rehab - Treatment Team Participation Discussed with Family/SO: No Was Patient/Family/SO present at Treatment Team Meeting: Yes
--- NOTE | 2016-12-02 10:30 | PCM.PSYCH ---
Initial Psychiatric Evaluation - Initial Psychiatric Evaluation Type of Admission: Voluntary Legal Status: Capacity Chief Complaint (in patient's own words): "I relapsed and felt suicidal" History of Present Illness and Precipitating Events: Pt is seen, chart reviewed, case discussed He is known to the leader writer from detox and psych admissions. Patient is a 61 year old male. He has three children in their 30s and he keeps in touch with them. He used to live with friends but he is now homeless b/c of his drug and alcohol use. He is on coil binder disability due to chronic back and leg pain. he is here b/c he felt more depressed and suicidal, and has been hearing a voice on and off. No commands. Pt relapsed a couple of days after his last detox at . He snorts or shoots one bundle of heroin a day and has been drinking alcohol about a 5th vodka or more. Pt has history of drinking a quart of tequila a day. Pt was in detox at [facility] twice this year and then went to [facility]. Pt has been using opioids for 10 years, which started with prescription painkillers for his back. Pt smokes one pack a day and denies any other recreational drug use. Pt is prescribed Xanax and Percocet by Dr. Zaman, which he takes. he also admits to overusing his Xanax up to 4x/day sometimes. Patient was in rehab once last year and detox 3x. He never tried suboxone maintenance therapy. Pt denies any legal issues. PMH: COPD and Hypercholesteremia PsychHx: Anxiety, depression FamPsychHx: Aunt and Brother are bipolar. Father and half brother are alcoholics Current Medications: Active Medications Generic Name Dose Route Start Last Admin Trade Name Freq PRN Reason Stop Dose Admin Escitalopram Oxalate 5 mg 12/02/16 10:30 Lexapro PO DAILY ROYER Gabapentin 300 mg 12/02/16 18:00 Neurontin PO BID ROYER Hydroxyzine HCl 50 mg 12/01/16 21:57 12/01/16 22:12 Atarax PO 50 mg Q6H PRN Administration Anxiety Ibuprofen 600 mg 12/01/16 21:57 Motrin Tab PO Q6 PRN Pain, moderate (4-7) Methadone HCl 20 mg 12/02/16 10:00 Methadone PO 12/06/16 09:59 Q24H ROYER Taper Pneumococcal Polyvalent Vaccine 0.5 ml 12/04/16 10:00 Pneumovax 23 Vaccine IM 12/04/16 10:01 .ONCE ONE Quetiapine Fumarate 100 mg 12/02/16 22:00 Seroquel PO HS ROYER Trazodone HCl 100 mg 12/01/16 21:57 12/01/16 22:11 Desyrel PO 100 mg HS PRN Administration Insomnia Past Psychiatric History - Past Psychiatric History Previous Treatment History: Inpatient Pertinent Medical Hx (Current Medical&Sleep Prob, Allergies): Allergies Allergy/AdvReac Type Severity Reaction Status Date / Time No Known Allergies Allergy Verified 12/01/16 16:46 Buprenorphine Hydrochloride [Subutex] 2 mg SL ONCE #1 tab 07/26/16 Escitalopram [Lexapro] 10 mg PO DAILY #30 tab 10/03/16 Gabapentin [Neurontin] 300 mg PO BID #60 cap 10/03/16 QUEtiapine [SEROquel] 200 mg PO HS #30 tab 10/03/16 traZODone [Desyrel] 100 mg PO HS PRN #30 tab 10/03/16 Review of Systems - Neurological Neurological: Tremor - Psychiatric Psychiatric: Abnormal Sleep Pattern, Anxiety, Behavioral Changes, Depression, Difficulty Concentrating, Irritability. absent: Hallucinations, Homicidal Ideation, Suicidal Ideation Mental Status Examination - Personal Presentation Personal Presentation: Looks older than stated age - Affect Affect: Constricted - Motor Activity Motor Activity: Calm - Reliability in Providing Information Reliability in Providing Information: Good - Speech Speech: Organized - Mood Mood: Depressed, Anxious - Formal Thought Process Formal Thought Process: No Impairment - Cognitive Functions Orientation: Person, Place, Situation, Time Sensorium: Alert Attention/Concentration: Easily distracted Abstract Thinking: [place] Estimate of Intelligence: Average Judgement: Intact, as evidence by: Insight regarding need for hospitalization Memory: Recent intact, as evidence by: Ability to recall events of the day, Remote intact, as evidenced by: Abilit to recall sig. 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 diet, exercise, meditation Opioid Withdrawal -methadone taper -monitor vitals and wdw symptoms -medications as needed Opioid Use Disorder-severe -CBT and MT -attend groups and activities - individual/group therapy -support and psychoeducation Alcohol Use Disorder-severe - CBT and MT -individual/group therapy -attend groups adn activities -support and psychoeducation Sedative, hypnotic use disorder -severe -CBT and MT -individual/group therapy -support and psychoeducation 33 minutes Projected ELOS: 7 days Prognosis: Fair Discharge Plan and Discharge Criteria: No wdw sxs and no severe depressive sxs refer to [facility]At and IOP or rehab - Smoking Cessation Smoking Cessation Initiated: Yes
[2016-12-02 15:52] VITALS: RESP 20
[2016-12-03] MEDS ORDERED: Benzocaine 10% Oral Anesthetic (12 ml) MM PRN (10:46)
--- NOTE | 2016-12-03 15:14 | PCM.PYCHPN ---
Psychiatric Progress Note - Psychiatric Progress Note Patient seen today, length of contact: 15 minutes Patient Chief Complaint: "I feel better today" Problems Identified/Issues Discussed: The patient was seen, chart reviewed, and case was discussed with staff. The patient is compliant with medications and reports no side effects. Patient states that he is feeling better today and has arranged a plan for his discharge. He states he is going to a program at a hospital in [place], [place] (does not know name), and has family in the area who are expecting his arrival. Patient states that his step-daughter is helping him arrange a train ride. When questioned about the seriousness of his intention to follow-through with this plan, patient states that he is "110% committed." He states that his problem is that in this area, he is around the same people who influence him negatively and cause him to relapse. 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 At present, patient complains of tooth pain and requests medication. Symptoms are improving, but patient needs more time to stabilize. After care discussed, support and psychoeducation given. Medication Change: Yes (Anbesol PRN toothache, Nicoderm 1 patch TD daily ) Medical Record Reviewed: Yes Mental Status Examination - Cognitive Function Orientation: Person, Place, Situation, Time - Mood Mood: Depressed, Anxious - Affect Affect: Constricted - Formal Thought Process Formal Thought Process: No Impairment - Homicidal Ideation Homicidal Ideation: No Goal/Treatment Plan - Goal/Treatment Plan Need for Continued Stay: Remain at risks for inpatient hospitalization, Discharge may exacerbated symptoms Progress Toward Problem(s) and Goals/Treatment Plan: Depression: Continue Lexapro and seroquel As needed meds Attend groups and activities Individual therapy Psychoeducation and support Encourage compliance with meds and after care Refer to outpatient program Teach healthy lifestyle methods, i.e. diet, exercise, meditation Opioid Withdrawal -methadone taper -monitor vitals and wdw symptoms -medications as needed Opioid Use Disorder-severe -CBT and [place] -attend groups and activities - individual/group therapy -support and psychoeducation Alcohol Use Disorder-severe - CBT and [place] -individual/group therapy -attend groups and activities -support and psychoeducation Sedative, hypnotic use disorder -severe -CBT and [place] -individual/group therapy -support and psychoeducation - Smoking Cessation Smoking Cessation Initiated: Yes
[2016-12-04] MEDS ORDERED: Pneumococcal 23-Valent Vaccine IM ONE (10:00)
--- NOTE | 2016-12-04 13:39 | PCM.PYCHPN ---
Psychiatric Progress Note - Psychiatric Progress Note Patient seen today, length of contact: 15 minutes Patient Chief Complaint: "I'm feeling positive" Problems Identified/Issues Discussed: The patient was seen, chart reviewed and case discussed with staff. The patient is compliant with medications and reports no side effects. Patient states that he's doing okay despite back and neck pain, and requests Lyrica or another pain medication. He slept well last night. At present, patient feels a little anxious but denies hopelessness, helplessness , suicidal or homicidal ideation. He states that he is "feeling positive." Denies visual or auditory hallucinations. He does not feel paranoid, or like he is being watched or followed. Patient reports diarrhea but otherwise denies withdrawal symptoms. Patient notes that his daughter has purchased a train ticket to [place] for him and she will be dropping it off. He notes that he's already spoken to his girlfriend about "taking a break" and says things ended amicably. Symptoms are improving, but patient needs more time to stabilize. After care discussed, support and psychoeducation given. Medication Change: Yes (Pregabalin 50mg PO BID for neck/pack pain) Medical Record Reviewed: Yes Mental Status Examination - Cognitive Function Orientation: Person, Place, Situation, Time - Mood Mood: Anxious - Affect Affect: Constricted - Formal Thought Process Formal Thought Process: No Impairment - Suicidal Ideation Suicidal Ideation: No - Homicidal Ideation Homicidal Ideation: No Goal/Treatment Plan - Goal/Treatment Plan Need for Continued Stay: Remain at risks for inpatient hospitalization, Discharge may exacerbated symptoms Progress Toward Problem(s) and Goals/Treatment Plan: Depression: Continue Lexapro and seroquel As needed meds Attend groups and activities Individual therapy Psychoeducation and support Encourage compliance with meds and after care Refer to outpatient program Teach healthy lifestyle methods, i.e. diet, exercise, meditation Opioid Withdrawal -methadone taper -monitor vitals and wdw symptoms -medications as needed Opioid Use Disorder-severe -CBT and RI -attend groups and activities - individual/group therapy -support and psychoeducation Alcohol Use Disorder-severe - CBT and RI -individual/group therapy -attend groups and activities -support and psychoeducation Sedative, hypnotic use disorder -severe -CBT and RI -individual/group therapy -support and psychoeducation
--- NOTE | 2016-12-05 15:31 | PCM.PYCHPN ---
Psychiatric Progress Note - Psychiatric Progress Note Patient seen today, length of contact: 16 minutes Patient Chief Complaint: "I'm coping very well" Problems Identified/Issues Discussed: The patient was seen, chart reviewed, case discussed with staff. THe patient is compliant with medications and reports no side effects. Patient states he is "coping very well" and slept well last night. He states that the Lyrica helped with his pain and requests a prescription. He denies anxiety, nervousness, hopelessness, helplessness, suicidal or homicidal ideation, visual/auditory hallucinations. Symptoms are improving but needs more time to stabilize. After care discussed-- patient is leaving on a train to [place] tomorrow. Support and psychoeducation given. Medication Change: Yes (Detox changes daily ) Medical Record Reviewed: Yes Mental Status Examination - Cognitive Function Orientation: Person, Place, Situation, Time Memory: Intact Attention: WNL Concentration: WNL Association: WN Fund of Knowledge: WN - Mood Mood: Neutral - Affect Affect: Constricted - Speech Speech: Soft - Formal Thought Process Formal Thought Process: No Impairment - Suicidal Ideation Suicidal Ideation: No - Homicidal Ideation Homicidal Ideation: No Goal/Treatment Plan - Goal/Treatment Plan Need for Continued Stay: Remain at risks for inpatient hospitalization, Discharge may exacerbated symptoms Progress Toward Problem(s) and Goals/Treatment Plan: Depression: Continue Lexapro and seroquel As needed meds Attend groups and activities Individual therapy Psychoeducation and support Encourage compliance with meds and after care Refer to outpatient program Teach healthy lifestyle methods, i.e. diet, exercise, meditation Opioid Withdrawal -methadone taper -monitor vitals and wdw symptoms -medications as needed Opioid Use Disorder-severe -CBT and [place] -attend groups and activities - individual/group therapy -support and psychoeducation Alcohol Use Disorder-severe - CBT and MN -individual/group therapy -attend groups and activities -support and psychoeducation Sedative, hypnotic use disorder -severe -CBT and [place] -individual/group therapy -support and psychoeducation
[2016-12-05 16:09] VITALS: BP 148/84; PULSE 63; TEMP 98.6
--- NOTE | 2016-12-06 09:00 | PCM.PYCHDC ---
Mental Status Examination - Mental Status Examination Orientation: Person Discharge Summary - Discharge Note Consultations:: List each consultation separately and include: 1. Reason for request. 2. Findings. 3. Follow-up Summary of Hospital Course include:: 1. Description of specific treatment plan utilized for patients during their course of treatmen. 2. Summarize the time- course for resolution of acute symptoms and/or regressed behaviors. 3. Describe issues identified and worked on during hospitalization. 4. Describe medication utilized. 5. Describe medical problems identified and treated. 6. Reassessment of suicide risk Summary of Hospital Course: Pt is seen, chart reviewed, case discussed He is known to the sba underwriter from detox and psych admissions. Patient is a 61 year old male. He has three children in their 30s and he keeps in touch with them. He used to live with friends but he is now homeless b/c of his drug and alcohol use. He is on fdc disability due to chronic back and leg pain. he is here b/c he felt more depressed and suicidal, and has been hearing a voice on and off. No commands. Pt relapsed a couple of days after his last detox at . He snorts or shoots one bundle of heroin a day and has been drinking alcohol about a 5th vodka or more. Pt has history of drinking a quart of tequila a day. Pt was in detox at [facility] twice this year and then went to [facility]. Pt has been using opioids for 10 years, which started with prescription painkillers for his back. Pt smokes one pack a day and denies any other recreational drug use. Pt is prescribed Xanax and Percocet by Dr. Zaman, which he takes. he also admits to overusing his Xanax up to 4x/day sometimes. Patient was in rehab once last year and detox 3x. He never tried suboxone maintenance therapy. Pt denies any legal issues. PMH: COPD and Hypercholesteremia PsychHx: Anxiety, depression FamPsychHx: Aunt and Brother are bipolar. Father and half brother are alcoholics - Final Diagnosis (DSM 5) Condition upon Discharge: FAIR Disposition: HOME/ ROUTINE Follow-up Treatment Plan: Depression: Continue Lexapro and seroquel As needed meds Attend groups and activities Individual therapy Psychoeducation and support Encourage compliance with meds and after care Refer to outpatient program Teach healthy lifestyle methods, i.e. diet, exercise, meditation Opioid Withdrawal -methadone taper -monitor vitals and wdw symptoms -medications as needed Opioid Use Disorder-severe -CBT and [place] -attend groups and activities - individual/group therapy -support and psychoeducation Alcohol Use Disorder-severe - CBT and NV -individual/group therapy -attend groups and activities -support and psychoeducation Sedative, hypnotic use disorder -severe -CBT and [place] -individual/group therapy -support and psychoeducation
== END 2016-12-06 06:30 | disposition home or self-care (01) | DRG 430 ==
LOC: C.ER 16:37 → C.9E 19:25 → C.5E 19:49
PROVIDERS: ADMIT Psychiatry & Neurology Psychiatry; ATTEND Psychiatry & Neurology Psychiatry
PROC: GZHZZZZ Group Psychotherapy (ICD-10-PCS; principal; 2016-12-01)
PROC: GZ56ZZZ Individual Psychotherapy, Supportive (ICD-10-PCS; 2016-12-01)
PROC: HZ52ZZZ Individual Psychotherapy for Substance Abuse Treatment, Cognitive-Behavioral (ICD-10-PCS; 2016-12-01)
PROC: HZ59ZZZ Individual Psychotherapy for Substance Abuse Treatment, Supportive (ICD-10-PCS; 2016-12-01)
PROC: HZ56ZZZ Individual Psychotherapy for Substance Abuse Treatment, Psychoeducation (ICD-10-PCS; 2016-12-01)
DX: F33.2 Major depressive disorder, recurrent severe without psychotic features (principal); F20.9 Schizophrenia, unspecified; F11.23 Opioid dependence with withdrawal; J44.9 Chronic obstructive pulmonary disease, unspecified; F17.210 Nicotine dependence, cigarettes, uncomplicated; E78.00 Pure hypercholesterolemia, unspecified; G89.29 Other chronic pain; M54.9 Dorsalgia, unspecified; M79.606 Pain in leg, unspecified; F41.9 Anxiety disorder, unspecified

== ENCOUNTER 2017-04-08 12:21 | Emergency (ER) | payer MEDICAID ==
[2017-04-08 12:21] VITALS: BMI 22.0
[2017-04-08 13:59] LABS: BASO # 0.1 K/uL (0.0-0.2); BASO % 0.9 % (0.0-2.0); EOS % 0.7 % (0.0-4.0); HEMOGLOBIN 13.8 g/dL (12.0-18.0); LYMPH # 1.4 K/uL (1.0-4.3); LYMPH % 21.3 % (20.0-40.0); MEAN CELL VOLUME 94.5 fL (80.0-94.0); MEAN CORPUSCULAR HEMOGLOBIN 32.2 pg (27.0-31.0); MEAN CORPUSCULAR HGB CONC 34.1 g/dL (33.0-37.0); MEAN PLATELET VOLUME 8.6 fL (7.2-11.7); MONO # 0.4 K/uL (0.0-0.8); MONO % 6.6 % (0.0-10.0); NEUT # 4.6 K/uL (1.8-7.0); NEUT % 70.5 % (50.0-75.0); RBC 4.29 Mil/uL (4.40-5.90); RED CELL DISTRIBUTION WIDTH 13.5 % (11.5-14.5); WHITE BLOOD COUNT 6.5 K/uL (4.8-10.8)
--- NOTE | 2017-04-08 14:00 | C.PDOC ---
History Of Present Illness 62 y/o male hx Heroin abuse through sniffing presents to the ED c/o hearing voices for 2 days . The patient states that he has been compliant with taking his medication Lyrica. The patient reports " The voices keep telling me to take more." The patient states that he has not taken any heroin today. Additionally , the patietn states that he has SI. The patient denies dizziness, headaches, nausea, vomiting, SOB, chest pain, and fever. Time Seen by Provider: 04/08/17 13:06 Chief Complaint (Nursing): Psychiatric Evaluation History Per: Patient History/Exam Limitations: clinical condition Onset/Duration Of Symptoms: Days Current Symptoms Are (Timing): Still Present Modifying Factor(s): Other (Heroin ) Associated Symptoms: Suicidal Thoughts Additional History Per: Patient Past Medical History Reviewed: Historical Data, Nursing Documentation, Vital Signs Vital Signs: Last Vital Signs Temp 97.7 F 04/08/17 18:52 Pulse 70 04/08/17 18:52 Resp 18 04/08/17 18:52 BP 107/66 04/08/17 18:52 Pulse Ox 95 04/08/17 18:52 - Medical History PMH: Anxiety, Bipolar Disorder, COPD, Depression, Parkinson's Disease, Seizures Denies: Diabetes, Hepatitis, HIV, HTN, Chronic Kidney Disease, Sexually Transmitted Disease - [facility] Procedures DETOXIFICATION SERVICES FOR SUBSTANCE ABUSE TREATMENT (03/13/17) GROUP FORMING FIXER FOR SUBSTANCE ABUSE TREATMENT, PSYCHOEDUCATION (07/24/16) GROUP FORMING FIXER FOR SUBSTANCE ABUSE, COGNITIVE BEHAVIORAL (07/24/16) GROUP PSYCHOTHERAPY (03/13/17) INDIV PSYCHOTHERAPY FOR SUBSTANCE ABUSE TREATMENT, SUPPORT (12/01/16) INDIV PSYCHOTHERAPY FOR SUBSTANCE ABUSE, COGNITIV BEHAVIORAL (12/01/16) INDIV PSYCHOTHERAPY FOR SUBSTANCE ABUSE, PSYCHOEDUCATION (12/01/16) INDIVIDUAL PSYCHOTHERAPY, SUPPORTIVE (03/13/17) INJECT/INFUSE ELECTROLYT (11/22/14) INJECT/INFUSE NEC (08/22/14) INSERT INDWELLING CATH (11/22/14) MEDICATION MANAGEMENT (03/13/17) Family History: States: No Known Family Hx - Social History Hx Alcohol Use: No Hx Substance Use: Yes - Immunization History Hx Tetanus Toxoid Vaccination: No Hx Influenza Vaccination: No Hx Pneumococcal Vaccination: No Review Of Systems Except As Marked, All Systems Reviewed And Found Negative. Constitutional: Positive for: Fever Cardiovascular: Negative for: Chest Pain Respiratory: Negative for: Cough, Shortness of Breath Gastrointestinal: Negative for: Nausea, Vomiting, Abdominal Pain Skin: Negative for: Rash Neurological: Positive for: Other (Hallucination). Negative for: Change in Speech Psych: Positive for: Suicidal ideation Physical Exam - Physical Exam Appears: Non-toxic Skin: Warm, Dry Head: Atraumatic Eye(s): bilateral: Normal Inspection Oral Mucosa: Moist Neck: Supple Chest: Symmetrical, No Tenderness Cardiovascular: Rhythm Regular Respiratory: Normal Breath Sounds, No Rales, No Rhonchi Gastrointestinal/Abdominal: Soft, No Tenderness, No Guarding, No Rebound Back: No CVA Tenderness Extremity: No Tenderness, No Calf Tenderness, Capillary Refill (2<sec.) Neurological/Psych: Normal Motor, Other (substance abuse ) Gait: Steady ED Course And Treatment - Laboratory Results Result Diagrams: 04/08/17 13:49 04/08/17 13:49 ECG Rhythm: Sinus Rhythm (64 bpm, no interval, normal axis, no st or t waves abnormalities ) O2 Sat by Pulse Oximetry: 95 (RA) - Other Rad Chest X- ray X-Ray: Viewed By Me Interpretation: HISTORY: admission. COMPARISON: None available. TECHNIQUE: Chest, one view. FINDINGS: Examination limited by habitus. LUNGS: No focal consolidation. Please note that chest x-ray has limited sensitivity for the detection of pulmonary masses. PLEURA: No significant pleural effusion identified. No definite pneumothorax . CARDIOVASCULAR: Heart size appears within normal limits. OSSEOUS STRUCTURES: No acute osseous abnormality identified. VISUALIZED UPPER ABDOMEN: Unremarkable. OTHER FINDINGS: None. IMPRESSION: Mild bibasilar atelectasis. Progress Note: UA was performed. The patient is afebrile. [facility] was notified today at 14:39pm . Labs and exam results are ready for request . Patient is medically cleared by [facility] and patient will be transferred over to [facility]. The patient is accepted to [facility] and is diagnosed with Schizoaffective Disorder and accepted to Dr. Muir's service. Disposition Discussed With : camelia Counseled Patient/Family Regarding: Studies Performed, Diagnosis - Disposition Disposition: Trans to Other Acute Care Hosp Disposition Time: 18:03 Condition: FAIR Forms: [facility] (Burmese) - Clinical Impression Clinical Impression: Schizoaffective disorder - Scribe Statement The provider has reviewed the documentation as recorded by the Scribe Tammy Levin
[2017-04-08 14:10] LABS: URINE BILIRUBIN NEGATIVE (NEGATIVE); URINE BLOOD 2+ (NEGATIVE); URINE CLARITY Clear (Clear); URINE COLOR Yellow (YELLOW); URINE GLUCOSE (UA) NORMAL (Normal); URINE LEUKOCYTE ESTERASE NEG Leu/uL (Negative); URINE NITRATE NEGATIVE (NEGATIVE); URINE PROTEIN NEGATIVE (NEGATIVE); URINE UROBILINOGEN NORMAL mg/dL (0.2-1.0)
[2017-04-08 14:25] LABS: BENZODIAZEPINES, UR NEGATIVE (NEGATIVE); PHENCYCLIDINE, UR NEGATIVE (NEGATIVE)
[2017-04-08 14:26] LABS: ALB/GLOB RATIO 1.1 (1.0-2.1); ALBUMIN 4.2 g/dL (3.5-5.0); ALT/SGPT 22 U/L (21-72); AST/SGOT 21 U/L (17-59); BLOOD UREA NITROGEN 17 mg/dL (9-20); CALCIUM 8.4 mg/dl (8.6-10.4); GFR AFRICAN-AMERICAN > 60; GFR NON-AFRICAN AMERICAN > 60
--- NOTE | 2017-04-08 15:51 | RAD ---
HISTORY: admission COMPARISON: None available. TECHNIQUE: Chest, one view. FINDINGS: Examination limited by habitus. LUNGS: No focal consolidation. Please note that chest x-ray has limited sensitivity for the detection of pulmonary masses. PLEURA: No significant pleural effusion identified. No definite pneumothorax . CARDIOVASCULAR: Heart size appears within normal limits. OSSEOUS STRUCTURES: No acute osseous abnormality identified. VISUALIZED UPPER ABDOMEN: Unremarkable. OTHER FINDINGS: None. IMPRESSION: Mild bibasilar atelectasis.
[2017-04-08 15:54] LABS: BARBITURATES, UR POSITIVE (NEGATIVE); OPIATES, UR POSITIVE (NEGATIVE)
[2017-04-08 17:16] VITALS: PULSE 70
[2017-04-08 17:23] VITALS: O2SAT 95
[2017-04-08 18:53] VITALS: BP 107/66; RESP 18; TEMP 97.7
--- NOTE | 2017-04-10 00:06 | CARD ---
APPROVED REPORT EKG Measurement Heart [id number] <Conclusion> Normal sinus rhythm Normal ECG
== END 2017-04-08 19:25 | disposition short-term general hospital (02) ==
LOC: C.ER 12:21
DX: F25.9 Schizoaffective disorder, unspecified (principal)

== ENCOUNTER 2017-05-04 19:16 | Emergency (ER) | payer MEDICAID ==
[2017-05-04 19:16] VITALS: BMI 22.0
--- NOTE | 2017-05-04 20:00 | C.PDOC ---
History Of Present Illness 62 year old male presents to the ED c/o hearing voices. Patient states he wants a psych admission for his auditory hallucinations, patient reports he is not complaint with his medications. Patient denies any SI/HI, CP, SOB, abdominal pain. Time Seen by Provider: 05/04/17 20:00 Chief Complaint (Nursing): Psychiatric Evaluation History Per: Patient History/Exam Limitations: no limitations Onset/Duration Of Symptoms: Days Current Symptoms Are (Timing): Still Present Suicide/Self Injury Attempted (Context): None Modifying Factor(s): None Associated Symptoms: denies: Depression, Suicidal Thoughts, Suicidal Plan Recent travel outside of the [place]: No Additional History Per: Patient Past Medical History Reviewed: Historical Data, Nursing Documentation, Vital Signs Vital Signs: Last Vital Signs Temp 98.4 F 05/04/17 19:33 Pulse 89 05/04/17 19:33 Resp 20 05/04/17 19:33 BP 106/72 05/04/17 19:33 Pulse Ox 95 05/04/17 21:37 - Medical History PMH: Anxiety, Bipolar Disorder, COPD, Depression, Parkinson's Disease, Schizophrenia, Seizures Denies: Diabetes, Hepatitis, HIV, HTN, Chronic Kidney Disease, Sexually Transmitted Disease Surgical History: No Surg Hx - [facility] Procedures DETOXIFICATION SERVICES FOR SUBSTANCE ABUSE TREATMENT (03/13/17) GROUP MANAGER REQUIREMENTS FOR SUBSTANCE ABUSE TREATMENT, PSYCHOEDUCATION (07/24/16) GROUP MANAGER REQUIREMENTS FOR SUBSTANCE ABUSE, COGNITIVE BEHAVIORAL (07/24/16) GROUP PSYCHOTHERAPY (04/08/17) INDIV PSYCHOTHERAPY FOR SUBSTANCE ABUSE TREATMENT, SUPPORT (12/01/16) INDIV PSYCHOTHERAPY FOR SUBSTANCE ABUSE, COGNITIV BEHAVIORAL (12/01/16) INDIV PSYCHOTHERAPY FOR SUBSTANCE ABUSE, PSYCHOEDUCATION (12/01/16) INDIVIDUAL PSYCHOTHERAPY, SUPPORTIVE (03/13/17) INJECT/INFUSE ELECTROLYT (11/22/14) INJECT/INFUSE NEC (08/22/14) INSERT INDWELLING CATH (11/22/14) INTRODUCTION OF SERUM/TOX/VACCINE INTO MUSCLE, PERC APPROACH (04/08/17) MEDICATION MANAGEMENT (03/13/17) MEDS MGMT FOR SUBSTANCE ABUSE TREATMENT, CLONIDINE (04/08/17) Family History: States: Unknown Family Hx - Social History Hx Alcohol Use: Yes Hx Substance Use: Yes - Immunization History Hx Tetanus Toxoid Vaccination: No Hx Influenza Vaccination: No Hx Pneumococcal Vaccination: No Review Of Systems Constitutional: Negative for: Fever, Chills Cardiovascular: Negative for: Chest Pain Respiratory: Negative for: Cough, Shortness of Breath Gastrointestinal: Negative for: Vomiting, Abdominal Pain Skin: Negative for: Rash Neurological: Negative for: Weakness, Numbness Psych: Negative for: Depression, Suicidal ideation Physical Exam - Physical Exam Appears: Non-toxic, No Acute Distress Skin: Warm, Dry Head: Normacephalic Nose: No Discharge, No Deformity Oral Mucosa: Moist Neck: Normal ROM, Supple Chest: Symmetrical Cardiovascular: Rhythm Regular, No Murmur Respiratory: No Decreased Breath Sounds, No Rales, No Rhonchi, No Wheezing Gastrointestinal/Abdominal: Soft, No Tenderness, No Guarding, No Rebound Extremity: No Tenderness, No Deformity, No Swelling Neurological/Psych: Oriented x3 Gait: Steady ED Course And Treatment - Laboratory Results Result Diagrams: 05/04/17 20:26 05/04/17 20:26 O2 Sat by Pulse Oximetry: 95 (On RA) Pulse Ox Interpretation: Normal Progress Note: Plan: -Labs. -UA. -Crisis evaluation. 9:50 PM pt was cleared for discharge by dr gonzalez Disposition Counseled Patient/Family Regarding: Studies Performed, Diagnosis, Need For Followup, Rx Given - Disposition Referrals: Community Mental Health [Outside] Disposition: HOME/ ROUTINE Disposition Time: 20:00 Condition: FAIR Prescriptions: Gabapentin [Neurontin] 600 mg PO BID #6 tablet Pregabalin [Lyrica] 150 mg PO DAILY #3 capsule Quetiapine Fumarate [Seroquel] 200 mg PO HS #3 tab traZODone [Desyrel] 100 mg PO HS #3 tab Instructions: Schizoaffective Disorder (ED), Narcotic Abuse (ED) Forms: [employer] (Nicaraguan) - Clinical Impression Clinical Impression: Schizoaffective disorder, Opioid abuse - Scribe Statement The provider has reviewed the documentation as recorded by the Scribe Jose Guadalupe Jefferson All medical record entries made by the Scribe were at my direction and personally dictated by me. I have reviewed the chart and agree that the record accurately reflects my personal performance of the history, physical exam, medical decision making, and the department course for this patient. I have also personally directed, reviewed, and agree with the discharge instructions and disposition.
[2017-05-04 20:29] LABS: BASO # 0.1 K/uL (0.0-0.2); BASO % 0.9 % (0.0-2.0); EOS # 0.1 K/uL (0.0-0.7); EOS % 1.9 % (0.0-4.0); LYMPH # 1.9 K/uL (1.0-4.3); LYMPH % 28.2 % (20.0-40.0); MEAN CELL VOLUME 93.5 fL (80.0-94.0); MEAN CORPUSCULAR HEMOGLOBIN 31.9 pg (27.0-31.0); MEAN CORPUSCULAR HGB CONC 34.1 g/dL (33.0-37.0); MEAN PLATELET VOLUME 8.9 fL (7.2-11.7); MONO # 0.5 K/uL (0.0-0.8); MONO % 7.6 % (0.0-10.0); NEUT # 4.1 K/uL (1.8-7.0); NEUT % 61.4 % (50.0-75.0); RBC 4.4 Mil/uL (4.40-5.90); WHITE BLOOD COUNT 6.6 K/uL (4.8-10.8)
[2017-05-04 20:50] LABS: ALB/GLOB RATIO 1.1 (1.0-2.1); ALBUMIN 4.1 g/dL (3.5-5.0); ALT/SGPT 15 U/L (21-72); AST/SGOT 21 U/L (17-59); BLOOD UREA NITROGEN 22 mg/dL (9-20); CALCIUM 9.3 mg/dl (8.6-10.4); GFR AFRICAN-AMERICAN > 60; GFR NON-AFRICAN AMERICAN 52
[2017-05-04 20:57] LABS: URINE BACTERIA RARE (<OCC); URINE BILIRUBIN NEGATIVE (NEGATIVE); URINE BLOOD 2+ (NEGATIVE); URINE CLARITY Hazy (Clear); URINE COLOR Yellow (YELLOW); URINE GLUCOSE (UA) NORMAL (Normal); URINE LEUKOCYTE ESTERASE NEG Leu/uL (Negative); URINE NITRATE NEGATIVE (NEGATIVE); URINE PROTEIN NEGATIVE (NEGATIVE)
[2017-05-04 21:40] LABS: BARBITURATES, UR NEGATIVE (NEGATIVE); PHENCYCLIDINE, UR NEGATIVE (NEGATIVE)
[2017-05-04 21:41] LABS: BENZODIAZEPINES, UR POSITIVE (NEGATIVE); OPIATES, UR POSITIVE (NEGATIVE)
[2017-05-04 21:58] VITALS: BP 120/87; PULSE 79; RESP 16; TEMP 98; O2SAT 98
== END 2017-05-04 21:58 | disposition home or self-care (01) ==
LOC: C.ER 19:16
DX: F25.9 Schizoaffective disorder, unspecified (principal); F11.10 Opioid abuse, uncomplicated

== ENCOUNTER 2017-10-15 14:30 | Inpatient (IN) | payer MEDICAID, OTHER ==
[2017-10-15 14:30] VITALS: BMI 28.0
[2017-10-15 16:01] LABS: BASO # 0.1 K/uL (0.0-0.2); EOS # 0.1 K/uL (0.0-0.7); EOS % 2.1 % (0.0-4.0); HEMOGLOBIN 13.6 g/dL (12.0-18.0); LYMPH # 1.4 K/uL (1.0-4.3); MEAN CELL VOLUME 93.6 fL (80.0-94.0); MEAN CORPUSCULAR HEMOGLOBIN 32.1 pg (27.0-31.0); MEAN CORPUSCULAR HGB CONC 34.2 g/dL (33.0-37.0); MEAN PLATELET VOLUME 8.6 fL (7.2-11.7); MONO # 0.4 K/uL (0.0-0.8); MONO % 6.5 % (0.0-10.0); NEUT # 3.5 K/uL (1.8-7.0); NEUT % 63.4 % (50.0-75.0); RBC 4.24 Mil/uL (4.40-5.90); RED CELL DISTRIBUTION WIDTH 14.2 % (11.5-14.5); WHITE BLOOD COUNT 5.6 K/uL (4.8-10.8)
[2017-10-15 16:05] LABS: URINE BILIRUBIN NEGATIVE (NEGATIVE); URINE BLOOD 2+ (NEGATIVE); URINE CLARITY Clear (Clear); URINE COLOR Yellow (YELLOW); URINE GLUCOSE (UA) NORMAL (Normal); URINE LEUKOCYTE ESTERASE NEG Leu/uL (Negative); URINE PROTEIN NEGATIVE (NEGATIVE); URINE UROBILINOGEN NORMAL mg/dL (0.2-1.0)
--- NOTE | 2017-10-15 16:05 | C.PDOC ---
History Of Present Illness 62 year old male presents to the ED for psychiatric evaluation. Patient admits to feeling depressed and expresses thoughts of hurting himself. Symptoms have been worsening over the last 1-2 days. Patient also admits to heroin use. He denies homicidal ideation and has no physical complaints at this time. Time Seen by Provider: 10/15/17 15:03 Chief Complaint (Nursing): Psychiatric Evaluation History Per: Patient History/Exam Limitations: no limitations Onset/Duration Of Symptoms: Days Current Symptoms Are (Timing): Worse Suicide/Self Injury Attempted (Context): None Modifying Factor(s): Other (heroin ) Associated Symptoms: Depression, Suicidal Thoughts Involuntary Hold By: None Recent travel outside of the [place]: No Additional History Per: Patient Past Medical History Reviewed: Historical Data, Nursing Documentation, Vital Signs Vital Signs: Last Vital Signs Temp 98.4 F 10/15/17 14:52 Pulse 69 10/15/17 14:52 Resp 20 10/15/17 14:52 BP 118/72 10/15/17 14:52 Pulse Ox 99 10/15/17 17:09 - Medical History PMH: Anxiety, Bipolar Disorder, COPD, Depression, Parkinson's Disease, Schizophrenia, Seizures Denies: Diabetes, Hepatitis, HIV, HTN, Chronic Kidney Disease, Sexually Transmitted Disease Surgical History: No Surg Hx - [facility] Procedures DETOXIFICATION SERVICES FOR SUBSTANCE ABUSE TREATMENT (03/13/17) GROUP METALLURGICAL TESTER FOR SUBSTANCE ABUSE TREATMENT, PSYCHOEDUCATION (07/24/16) GROUP METALLURGICAL TESTER FOR SUBSTANCE ABUSE, COGNITIVE BEHAVIORAL (07/24/16) GROUP PSYCHOTHERAPY (04/08/17) INDIV PSYCHOTHERAPY FOR SUBSTANCE ABUSE TREATMENT, SUPPORT (12/01/16) INDIV PSYCHOTHERAPY FOR SUBSTANCE ABUSE, COGNITIV BEHAVIORAL (12/01/16) INDIV PSYCHOTHERAPY FOR SUBSTANCE ABUSE, PSYCHOEDUCATION (12/01/16) INDIVIDUAL PSYCHOTHERAPY, SUPPORTIVE (03/13/17) INJECT/INFUSE ELECTROLYT (11/22/14) INJECT/INFUSE NEC (08/22/14) INSERT INDWELLING CATH (11/22/14) INTRODUCTION OF SERUM/TOX/VACCINE INTO MUSCLE, PERC APPROACH (04/08/17) MEDICATION MANAGEMENT (03/13/17) MEDS MGMT FOR SUBSTANCE ABUSE TREATMENT, CLONIDINE (04/08/17) Family History: States: Unknown Family Hx - Social History Hx Alcohol Use: Yes Hx Substance Use: Yes - Immunization History Hx Tetanus Toxoid Vaccination: No Hx Influenza Vaccination: No Hx Pneumococcal Vaccination: No Review Of Systems Psych: Positive for: Depression, Suicidal ideation. Negative for: Other ( homicidal ideation ) Physical Exam - Physical Exam Appears: Non-toxic, No Acute Distress Skin: Normal Color, Warm, Dry Head: Atraumatic, Normacephalic Eye(s): bilateral: Normal Inspection Oral Mucosa: Moist Neck: Supple Chest: Symmetrical, No Deformity Cardiovascular: Rhythm Regular Respiratory: Normal Breath Sounds, No Accessory Muscle Use Extremity: Normal ROM Neurological/Psych: Normal Speech, Normal Cognition ED Course And Treatment - Laboratory Results Result Diagrams: 10/15/17 15:56 10/15/17 15:56 O2 Sat by Pulse Oximetry: 99 (on RA) Pulse Ox Interpretation: Normal Medical Decision Making Medical Decision Making: Assessment: psychiatric evaluation for suicidal ideation and depression, heroin use Plan: * bloodwork * urinalysis * reassess and disposition Progress: bloodwork and urinalysis ordered and reviewed. discussed with crisis and will admit to psych floor Disposition Discussed With Dr.: Bryanna Ortiz Doctor Will See Patient In The: Hospital Counseled Patient/Family Regarding: Studies Performed, Diagnosis - Disposition Disposition: HOSPITALIZED Disposition Time: 17:09 Condition: FAIR Forms: [facility] (Amharic) - Clinical Impression Clinical Impression: Depression - Scribe Statement The provider has reviewed the documentation as recorded by the Scribe (Darya Villela) Provider Attestation: All medical record entries made by the Scribe were at my direction and personally dictated by me. I have reviewed the chart and agree that the record accurately reflects my personal performance of the history, physical exam, medical decision making, and the department course for this patient. I have also personally directed, reviewed, and agree with the discharge instructions and disposition.
[2017-10-15 16:17] LABS: ALB/GLOB RATIO 1.4 (1.0-2.1); ALBUMIN 4.3 g/dL (3.5-5.0); ALT/SGPT 24 U/L (21-72); AST/SGOT 16 U/L (17-59); BLOOD UREA NITROGEN 18 mg/dL (9-20); CALCIUM 9.6 mg/dl (8.6-10.4); GFR AFRICAN-AMERICAN > 60; GFR NON-AFRICAN AMERICAN > 60
[2017-10-15 16:31] LABS: BARBITURATES, UR NEGATIVE (NEGATIVE); BENZODIAZEPINES, UR NEGATIVE (NEGATIVE); PHENCYCLIDINE, UR NEGATIVE (NEGATIVE)
[2017-10-15 17:01] LABS: OPIATES, UR POSITIVE (NEGATIVE)
--- NOTE | 2017-10-15 23:36 | PCM.BM ---
<Darlene Rock - Last Filed: 10/15/17 23:32> Treatment Plan Problems - Problems identified on initial assessmt Depression Date Initiated: 10/15/17 Time Initiated: 17:55 Assessment reference: NA Status: Active Opiates abuse Date Initiated: 10/15/17 Time Initiated: 17:55 Assessment reference: NA Status: Active Treatment assets and liabiliti Patient Assests: cooperative, ADL independent, negotiates basic needs, cognitively intact Patient Liabilities: substance abuse (Heroin), medical problems (COPD) - Milieu Protocol Maintain good personal hygiene: daily Encourage regular showers, daily Remind patient to perform daily oral care, every shift Assist patient to perform ADL's Conduct patient checks and document Observation sheet: Q15 minutes Maintain personal safety: every shift Educate patient to report safety concerns to staff, every shift Monitor environment for contraband/sharps Medication safety: Monitor for expected outcome, potential side effects: every shift, Assess barriers to learning: every shift, Assess readiness for medication education: every shift <Bryanna Ortiz - Last Filed: 10/16/17 10:31> - Diagnosis (1) Depression Status: Acute Interventions: 10/16/17 10:31 * Assess/adjust medications daily and /or as needed * See patient on an individual basis 7x/week to assess symptoms of depression * Monitor for side effects & effectiveness of medications * (2) Drug abuse Status: Acute Interventions: 10/16/17 10:31 * Assess 7x/week regarding severity of withdrawal * Educate regarding risks, benefits, side effects and alternatives of medications * Use Motivational Interviewing for abstinence * Use CBT for relapse prevention * Medication management for withdrawal symptoms * Encourage medication assisted treatment * <Isabel Ordoñez - Last Filed: 10/16/17 15:34> Family Contact Family involvement: Patient does not wish Family/SO involvement Family contact: Patient declines to allow family contact at present - Goals for Treatment Patient goals for treatment: "I want to go to a assisted rehab." Discharge/Continuing Care - Education Needs Education Needs: Patient Medication, Patient Diagnosis/Disease Process, Patient Coping Skills - Discharge Discharge Criteria: Free of Suicidal thoughts, Normal sleep pattern, Ability to care for self, No longer exhibiting s/s of withdrawal, Reduction of target symptoms Discharge to:: Substance Abuse Rehab - Treatment Team Participation Discussed with Family/SO: No Was Patient/Family/SO present at Treatment Team Meeting: Yes
--- NOTE | 2017-10-16 09:41 | PCM.PSYCH ---
Initial Psychiatric Evaluation - Initial Psychiatric Evaluation Type of Admission: Voluntary Legal Status: Capacity Chief Complaint (in patient's own words): I was feeling depressed and suicidal.' History of Present Illness and Precipitating Events: Pt is a 62 year old CM, unemployed and homeless, who presented to [facility] today for suicidal thoughts. Pt has a long history of inpatient psychiatric hospitalizations, he was discharged from , last year. However he denies any history of follow up with any psychiatrist. He also reports h/o few detoxs and rehabs. His last rehab was in Mar 2017 in [place]. Pt reports that he is tired of everything and I have been complacent with suicide. Pt stated he planned on taking a lot of Xanax pills (illicit). Pt reports of having suicidal thoughts for a week now and is unsure if he has a hx of S/I. Pt reported of seeing shadows and is unsure of his hx with hallucinations. 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 Pt reports of being dx with Bipolar disorder and being not compliant with meds. He reports past history of suicidal ideation and incomplete attempts. Pt reported of trying to hang himself with a shower aneudy but it broke and there was no evidence pertaining to bahena around his neck." Pt reported of abusing heroin and alcohol; pt reported of using one bundle today intranasl and uses about 6-7 bags on a daily and last drank alcohol 4 days ago and drinks about 1/5 of vodka on a daily and has hx of withdraws which he stated are cramps. Pt reported of having no support system but attends [employer] meetings on a regular. Pt reported of blacking out 2 weeks ago off of Xanax and he doesnt remember stealing from a store but was arrested for theft and he never steals. Pt was depressed, his speech was mumbled and his affect was flat. Patient reports depressed mood, at times feelings of hopelessness and helplessness and poor sleep and poor appetite. Patient reports of withdrawal symptoms including abdominal cramps, anxiety, headaches and sweating. PMH COPD Current Medications: Active Medications Generic Name Dose Route Start Last Admin Trade Name Freq PRN Reason Stop Dose Admin Clonidine HCl 0.1 mg 10/15/17 17:16 Catapres PO Q8 PRN COWS Score More or Equal to 5 Hydroxyzine HCl 25 mg 10/15/17 17:17 10/16/17 04:35 Atarax PO 25 mg Q6 PRN Administration Anxiety Ibuprofen 600 mg 10/15/17 17:18 10/16/17 04:34 Motrin Tab PO 600 mg Q6H PRN Administration Pain, moderate (4-7) Loperamide HCl 2 mg 10/15/17 17:16 10/16/17 04:34 Imodium PO 2 mg Q8 PRN Administration Diarrhea Ondansetron HCl 4 mg 10/15/17 17:16 Zofran Tab PO Q8 PRN Nausea/Vomiting Quetiapine Fumarate 50 mg 10/15/17 22:00 10/15/17 22:34 Seroquel PO Not Given HS ROYER Past Psychiatric History - Past Psychiatric History Previous Treatment History: Inpatient Pertinent Medical Hx (Current Medical&Sleep Prob, Allergies): Allergies Allergy/AdvReac Type Severity Reaction Status Date / Time No Known Allergies Allergy Verified 10/15/17 14:55 Pregabalin [Lyrica] 150 mg PO DAILY #30 capsule 04/12/17 Ibuprofen [Motrin] 400 mg PO Q8H PRN #20 tab 09/19/17 Quetiapine Fumarate [Seroquel] 100 mg PO DAILY 10/15/17 traZODone [trazODONE HYDROCHLORIDE] 50 mg PO DAILY 10/15/17 Review of Systems - Review of Systems All systems: reviewed and no additional remarkable complaints except - Psychiatric Psychiatric: Anxiety, Hallucinations, Homicidal Ideation, Irritability, Suicidal Ideation Mental Status Examination - Personal Presentation Personal Presentation: Looks stated age - Affect Affect: Constricted, Depressed - Motor Activity Motor Activity: Psychomotor Agitation - Reliability in Providing Information Reliability in Providing Information: Poor, due to alteration in thoughts, Poor , due to altered mood - Speech Speech: Disorganized - Mood Mood: Depressed, Anxious - Formal Thought Process Formal Thought Process: Hallucinations, Delusions, Paranoia - Hallucinations/Delusions Delusions: Persecution - Obsessions/Compulsions Obsessions: No Compulsions: No - Cognitive Functions Orientation: Person, Place, Situation, Time Sensorium: Alert Attention/Concentration: Attentive Abstract Thinking: [place] Estimate of Intelligence: Below average Judgement: Imparied, as evidence by: Poor judgement, Imparied, as evidence by: Lack of insight into illness - Risk Risk: Suicidal, Withdrawal, Diminished functioning - Limitations Limitations: Living alone DSM 5 DX - DSM 5 DSM 5 Diagnosis: Major Depressive Disorder w/ psychotic features Opioid Use Disorder Opioid withdrawal Alcohol Use Disorder - Recommended/Plan of Treatment Treatment Recommendations and Plan of Treatment: Major Depressive Disorder w/ psychotic features Opioid Use Disorder Opioid withdrawal Alcohol Use Disorder CBT Psychoeducation Supportive therapy, group therapy Trazodone 50 mg by mouth daily at bedtime Seroquel 50 mg P OQHS MVI/Thiamine/Folic Acid Methadone taper Neurontin 100 mg po tid - Smoking Cessation Smoking Cessation Initiated: No
--- NOTE | 2017-10-17 14:29 | PCM.PYCHPN ---
Psychiatric Progress Note - Psychiatric Progress Note Patient seen today, length of contact: 16 min Patient Chief Complaint: I was feeling depressed.' Problems Identified/Issues Discussed: Patient seen and evaluated, chart reviewed and discussed with the nurse. Pt reports depressed mood, at times feelings of hopelessness and helplessness. He remained isolated and withdrawn, and confined to his room. He reports some improvement in the AVH and paranoia. Patient is compliant with medications and denies any side effects. Symptoms are improving but pt needs more time to stabilize. Support and psychoeducation given. Medication Change: Yes Medical Record Reviewed: Yes Mental Status Examination - Cognitive Function Orientation: Person, Place, Situation, Time Memory: Intact Attention: WNL Concentration: Poor Association: WNL Fund of Knowledge: Poor - Mood Mood: Depressed, Anxious - Affect Affect: Constricted, Depressed - Speech Speech: Soft - Formal Thought Process Formal Thought Process: Hallucinations, Delusions, Paranoia - Suicidal Ideation Suicidal Ideation: No - Homicidal Ideation Homicidal Ideation: No Goal/Treatment Plan - Goal/Treatment Plan Need for Continued Stay: Severe depression anxiety, Severe functional impairment Progress Toward Problem(s) and Goals/Treatment Plan: Major Depressive Disorder w/ psychotic features Opioid Use Disorder Opioid withdrawal Alcohol Use Disorder CBT Psychoeducation Supportive therapy, group therapy Trazodone 50 mg by mouth daily at bedtime Paxil 10 mg PO Daily Start Lyrica 50 mg PO BID Increase Seroquel 100 mg PO QHS MVI/Thiamine/Folic Acid Methadone taper Neurontin 100 mg po tid - Smoking Cessation Smoking Cessation Initiated: No
[2017-10-18 06:21] VITALS: O2SAT 98
--- NOTE | 2017-10-18 10:58 | PCM.PYCHPN ---
Psychiatric Progress Note - Psychiatric Progress Note Patient seen today, length of contact: 17 min Patient Chief Complaint: I m feeling little better.' Problems Identified/Issues Discussed: Patient seen and evaluated, chart reviewed and discussed with the nurse. Pt reports some improvement in the depressed mood, and some improvement in the feelings of hopelessness and helplessness. He remained isolated and withdrawn, and confined to his room. He reports some improvement in the AVH and paranoia. Patient is compliant with medications and denies any side effects. Symptoms are improving but pt needs more time to stabilize. Support and psychoeducation given. Medication Change: Yes Medical Record Reviewed: Yes Mental Status Examination - Cognitive Function Orientation: Person, Place, Situation, Time Memory: Intact Attention: WNL Concentration: Poor Association: WNL Fund of Knowledge: Poor - Mood Mood: Depressed, Anxious - Affect Affect: Constricted, Depressed - Speech Speech: Soft - Formal Thought Process Formal Thought Process: Hallucinations, Delusions, Paranoia - Suicidal Ideation Suicidal Ideation: No - Homicidal Ideation Homicidal Ideation: No Goal/Treatment Plan - Goal/Treatment Plan Need for Continued Stay: Severe depression anxiety, Severe functional impairment Progress Toward Problem(s) and Goals/Treatment Plan: Major Depressive Disorder w/ psychotic features Opioid Use Disorder Opioid withdrawal Alcohol Use Disorder CBT Psychoeducation Supportive therapy, group therapy paxil 10 mg Increase Seroquel 100 mg P OQHS Lyrica 50 mg PO BID MVI/Thiamine/Folic Acid Methadone taper D/C Neurontin 100 mg po tid - Smoking Cessation Smoking Cessation Initiated: No
--- NOTE | 2017-10-19 23:14 | PCM.PYCHPN ---
Psychiatric Progress Note - Psychiatric Progress Note Patient seen today, length of contact: 17 min Patient Chief Complaint: "I'm getting better day by day" Problems Identified/Issues Discussed: The pt is seen, chart reviewed, case discussed with staff. Pt stated that he is feeling better day by day. He start attending participating in the groups. The pt is compliant with medications and reports no side-effects.Symptoms are improving but needs more time to stabilize. After care discussed, support and psychoeducation given. Medication Change: No Medical Record Reviewed: Yes Mental Status Examination - Cognitive Function Orientation: Person, Place, Situation, Time Memory: Intact Attention: WNL Concentration: Poor Association: WNL Fund of Knowledge: Poor Decription of patient's judgement and insights: improving/improving - Mood Mood: Depressed, Anxious - Affect Affect: Constricted, Depressed - Speech Speech: Soft - Formal Thought Process Formal Thought Process: Hallucinations, Delusions, Paranoia - Suicidal Ideation Suicidal Ideation: No Plan: denied - Homicidal Ideation Homicidal Ideation: No Plan: denied Goal/Treatment Plan - Goal/Treatment Plan Need for Continued Stay: Severe depression anxiety, Severe functional impairment Progress Toward Problem(s) and Goals/Treatment Plan: Continue medications Support and psychoeducation daily Attend groups and activities daily After care planning by - Smoking Cessation Smoking Cessation Initiated: Yes
[2017-10-20 06:31] VITALS: RESP 18
--- NOTE | 2017-10-20 14:20 | PCM.PYCHPN ---
Psychiatric Progress Note - Psychiatric Progress Note Patient seen today, length of contact: 17 min Patient Chief Complaint: "I'm attending all activities in the unit" Problems Identified/Issues Discussed: The pt is seen, chart reviewed, case discussed with staff. Pt stated that he is attending all activities in the unit. He stated that he is feeling "happy." He had a plan to visit and meet with his grandson. The pt is compliant with medications and reports no side-effects.Symptoms are improving but needs more time to stabilize. After care discussed, support and psychoeducation given. Medication Change: No Medical Record Reviewed: Yes Mental Status Examination - Cognitive Function Orientation: Person, Place, Situation, Time Memory: Intact Attention: WNL Concentration: Poor Association: WNL Fund of Knowledge: Poor Decription of patient's judgement and insights: improving/improving - Mood Mood: Depressed, Anxious - Affect Affect: Constricted, Depressed - Speech Speech: Appropriate - Formal Thought Process Formal Thought Process: Paranoia Psychotic Thoughts and Behaviors: pt reported improvement in his AH - Suicidal Ideation Suicidal Ideation: No Plan: denied - Homicidal Ideation Homicidal Ideation: No Plan: denied Goal/Treatment Plan - Goal/Treatment Plan Need for Continued Stay: Severe depression anxiety, Severe functional impairment Progress Toward Problem(s) and Goals/Treatment Plan: Continue medications Support and psychoeducation daily Attend groups and activities daily After care planning by DMITRI - Smoking Cessation Smoking Cessation Initiated: Yes
[2017-10-21 06:04] VITALS: TEMP 97.6
[2017-10-21 09:15] VITALS: BP 110/57; PULSE 77
--- NOTE | 2017-10-21 10:49 | PCM.PYCHDC ---
Mental Status Examination - Mental Status Examination Orientation: Person, Place, Situation, Time Memory: Intact Mood: Neutral Speech: Soft Attention: WNL Concentration: WNL Association: WNL Fund of Knowledge: WNL Formal Thought Process: No Impairment Description of patient's judgement and insight: good, fair Psychotic Thoughts and Behaviors: denies any AVH Suicidal Ideation: No Current Homicidal Ideation?: No Discharge Summary - Discharge Note Reason for Hospitalization: Pt is a 62 year old CM, unemployed and homeless, who presented to [facility] today for suicidal thoughts. Pt has a long history of inpatient psychiatric hospitalizations, he was discharged from , last year. However he denies any history of follow up with any psychiatrist. He also reports h/o few detoxs and rehabs. His last rehab was in Mar 2017 in [place]. Pt reports that he is tired of everything and I have been complacent with suicide. Pt stated he planned on taking a lot of Xanax pills (illicit). Pt reports of having suicidal thoughts for a week now and is unsure if he has a hx of S/I. Pt reported of seeing shadows and is unsure of his hx with hallucinations. 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 Pt reports of being dx with Bipolar disorder and being not compliant with meds. He reports past history of suicidal ideation and incomplete attempts. Pt reported of trying to hang himself with a shower aneudy but it broke and there was no evidence pertaining to bahena around his neck." Pt reported of abusing heroin and alcohol; pt reported of using one bundle today intranasl and uses about 6-7 bags on a daily and last drank alcohol 4 days ago and drinks about 1/5 of vodka on a daily and has hx of withdraws which he stated are cramps. Pt reported of having no support system but attends [employer] meetings on a regular. Pt reported of blacking out 2 weeks ago off of Xanax and he doesnt remember stealing from a store but was arrested for theft and he never steals. Pt was depressed, his speech was mumbled and his affect was flat. Patient reports depressed mood, at times feelings of hopelessness and helplessness and poor sleep and poor appetite. Patient reports of withdrawal symptoms including abdominal cramps, anxiety, headaches and sweating. Consultations:: List each consultation separately and include: 1. Reason for request. 2. Findings. 3. Follow-up Summary of Hospital Course include:: 1. Description of specific treatment plan utilized for patients during their course of treatmen. 2. Summarize the time- course for resolution of acute symptoms and/or regressed behaviors. 3. Describe issues identified and worked on during hospitalization. 4. Describe medication utilized. 5. Describe medical problems identified and treated. 6. Reassessment of suicide risk Summary of Hospital Course: Pt is a 62 year old CM, unemployed and homeless, who presented to [facility] today for suicidal thoughts. Pt has a long history of inpatient psychiatric hospitalizations, he was discharged from , last year. However he denies any history of follow up with any psychiatrist. He also reports h/o few detoxs and rehabs. His last rehab was in Mar 2017 in [place]. Pt reports that he is tired of everything and I have been complacent with suicide. Pt stated he planned on taking a lot of Xanax pills (illicit). Pt reports of having suicidal thoughts for a week now and is unsure if he has a hx of S/I. Pt reported of seeing shadows and is unsure of his hx with hallucinations. 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 Pt reports of being dx with Bipolar disorder and being not compliant with meds. He reports past history of suicidal ideation and incomplete attempts. Pt reported of trying to hang himself with a shower aneudy but it broke and there was no evidence pertaining to bahena around his neck." Pt reported of abusing heroin and alcohol; pt reported of using one bundle today intranasl and uses about 6-7 bags on a daily and last drank alcohol 4 days ago and drinks about 1/5 of vodka on a daily and has hx of withdraws which he stated are cramps. Pt reported of having no support system but attends [employer] meetings on a regular. Pt reported of blacking out 2 weeks ago off of Xanax and he doesnt remember stealing from a store but was arrested for theft and he never steals. Pt was depressed, his speech was mumbled and his affect was flat. Patient reports depressed mood, at times feelings of hopelessness and helplessness and poor sleep and poor appetite. Patient reports of withdrawal symptoms including abdominal cramps, anxiety, headaches and sweating. PMH COPD - Diagnosis (1) Depression Current Visit: Yes Status: Acute (2) Drug abuse Current Visit: No Status: Acute - Final Diagnosis (DSM 5) Condition upon Discharge: FAIR DSM 5: Major Depressive Disorder w/ psychotic features Opioid Use Disorder Opioid withdrawal Alcohol Use Disorder Disposition: HOME/ ROUTINE Follow-up Treatment Plan: Major Depressive Disorder w/ psychotic features Opioid Use Disorder Opioid withdrawal Alcohol Use Disorder CBT Psychoeducation Supportive therapy, group therapy paxil 10 mg Increase Seroquel 100 mg P OQHS Lyrica 50 mg PO BID MVI/Thiamine/Folic Acid Methadone taper D/C Neurontin 100 mg po tid Prescriptions/Medication Reconciliation: PARoxetine [Paxil] 10 mg PO DAILY #30 tab Pregabalin [Lyrica] 50 mg PO BID #60 cap QUEtiapine [Seroquel] 100 mg PO HS #30 tab - Smoking Cessation Smoking Cessation Medication prescribed: No - Antipsychotic Medications Pt discharged on 2 or more routine antipsychotic medications: No
== END 2017-10-21 11:11 | disposition home or self-care (01) | DRG 430 ==
LOC: C.ER 14:30 → C.5E 17:08
PROVIDERS: ADMIT Psychiatry & Neurology Psychiatry; ATTEND Psychiatry & Neurology Psychiatry
PROC: GZHZZZZ Group Psychotherapy (ICD-10-PCS; principal; 2017-10-15)
PROC: GZ56ZZZ Individual Psychotherapy, Supportive (ICD-10-PCS; 2017-10-15)
DX: F32.3 Major depressive disorder, single episode, severe with psychotic features (principal); J44.9 Chronic obstructive pulmonary disease, unspecified; F11.23 Opioid dependence with withdrawal; F41.9 Anxiety disorder, unspecified; G20 Parkinson's disease; R45.851 Suicidal ideations; Z59.0 Homelessness; Z91.14 Patient's other noncompliance with medication regimen; F17.200 Nicotine dependence, unspecified, uncomplicated; F10.10 Alcohol abuse, uncomplicated